=== PATIENT | male | born 1950 | race Caucasian/White ===

== ENCOUNTER → 2022-12-29 12:25 | Outpatient (BNVA) | payer MEDICARE, SELFPAY | PROVIDERS: PCP Internal Medicine; Visit Provider Orthopaedic Surgery | DX: M17.11 Unilateral primary osteoarthritis, right knee (principal) | CPT/HCPCS: 20610; J3301 ==

== ENCOUNTER 2023-06-02 07:43 | Outpatient (REF) | payer MEDICARE, SELFPAY ==
--- NOTE | ~2023-06-02 | XR_ITS ---
EXAMINATION: XR KNEE, RIGHT CLINICAL INFORMATION: Unilateral primary osteoarthritis. COMPARISON: None available. TECHNIQUE: AP, lateral and sunrise views of the right knee are submitted. FINDINGS: Bony mineralization is normal. There is marked narrowing of the medial and patellofemoral joint space compartment, and the lateral joint space compartment is well-maintained. There is a mild varus configuration. There is chondrocalcinosis. No fracture, dislocation or significant joint effusion is seen. There is no foreign body. XR/XR knee LT 3V IMPRESSION: 1. There is marked osteoarthritic change of the medial and patellofemoral joint space compartments of the right knee. 2. There is a mild varus configuration. 3. No fracture, dislocation or joint effusion is seen. 4. There is chondrocalcinosis, which can be associated with CPPD. EXAMINATION: XR KNEE, LEFT CLINICAL INFORMATION: Pain. COMPARISON: Radiograph dated 02/15/2017. TECHNIQUE: AP, lateral and sunrise views of the left knee are submitted. FINDINGS: Prosthetic components of the total knee arthroplasty are appropriately aligned without periprosthetic fracture or abnormal lucency. No component migration. No joint effusion. IMPRESSION: Appropriate alignment of the left total knee arthroplasty without evidence of complications.
--- NOTE | ~2023-06-02 | XR_ITS ---
EXAMINATION: XR KNEE, RIGHT CLINICAL INFORMATION: Unilateral primary osteoarthritis. COMPARISON: None available. TECHNIQUE: AP, lateral and sunrise views of the right knee are submitted. FINDINGS: Bony mineralization is normal. There is marked narrowing of the medial and patellofemoral joint space compartment, and the lateral joint space compartment is well-maintained. There is a mild varus configuration. There is chondrocalcinosis. No fracture, dislocation or significant joint effusion is seen. There is no foreign body. XR/XR knee RT 3V IMPRESSION: 1. There is marked osteoarthritic change of the medial and patellofemoral joint space compartments of the right knee. 2. There is a mild varus configuration. 3. No fracture, dislocation or joint effusion is seen. 4. There is chondrocalcinosis, which can be associated with CPPD. EXAMINATION: XR KNEE, LEFT CLINICAL INFORMATION: Pain. COMPARISON: Radiograph dated 02/15/2017. TECHNIQUE: AP, lateral and sunrise views of the left knee are submitted. FINDINGS: Prosthetic components of the total knee arthroplasty are appropriately aligned without periprosthetic fracture or abnormal lucency. No component migration. No joint effusion. IMPRESSION: Appropriate alignment of the left total knee arthroplasty without evidence of complications.
== END 2023-06-02 07:44 | disposition home or self-care (01) ==
LOC: HO.HOSX 07:43
PROVIDERS: Visit Provider Orthopaedic Surgery
DX: M17.11 Unilateral primary osteoarthritis, right knee (principal); M25.562 Pain in left knee
CPT/HCPCS: 73562; 99212

== ENCOUNTER 2023-06-02 09:48 | Outpatient (AMB) | payer MEDICARE, SELFPAY ==
--- NOTE | 2023-06-02 10:04 | A.OFFVIS_ITS ---
Intake Intake Visit Reasons: Preop-RT TKA 06/06/23 Intake Note: Graham is a 72 year old male who presents with complaints of progressively worsening right knee pain. He did undergo left total knee replacement surgery on April 27, 2021. He denies any pain in his left knee. He describes his right knee pain as sharp and severe in nature, 10/10. His right knee pain has gotten worse over the last few years in spite of continued non operative treatments. He has done physical therapy for 12 weeks over the last 6 months which aggravated his pain. He has also tried Tylenol and anti-inflammatory medicines which gave him minimal relief. The patient has difficulty walking even short distances because of his pain. At this point is right knee pain is interfering with his activities of daily living and his ability to sleep well through the night.. Allergies No Known Allergies [No Known Allergies*] Allergy (Verified 06/02/23 10:04) Medication List - Last Reconciled 06/02/23 by Tano Ray MD amlodipine 5 mg PO BEDTIME aspirin 81 mg PO BEDTIME finasteride 5 mg PO BEDTIME losartan 25 mg PO BEDTIME meloxicam 15 mg PO BEDTIME PRN metformin 500 mg PO BEDTIME rosuvastatin 5 mg PO BEDTIME tamsulosin 0.8 mg PO BEDTIME [facility] Medical History (Updated 06/02/23 @ 07:43 by Tano Ray MD) History of melanoma Diabetes BPH (benign prostatic hyperplasia) Right bundle branch block (RBBB) Hx of type 2 diabetes mellitus History of high cholesterol History of high blood pressure Surgical History (Updated 05/30/23 @ 13:23 by Taylor Mistry RN) Hx of colonoscopy History of melanoma excision Hx of cardiac catheterization History of total left knee replacement (TKR) Social History (Updated 05/30/23 @ 13:49 by Taylor Mistry RN) Household Members: Significant Other Housing: House Are you a primary vp care management to a significant other at home: No Do you presently have visiting nurse or other home services: No 75 years or older and lives alone: No Alcohol intake: never Patient Tobacco Use Status: Never used Tobacco Current occupational status: retired Current occupation: right hand dominant Physical Exam Const Other: Well-nourished well-developed very friendly male awake alert and oriented x3 in no acute distress Lungs - clear to auscultation bilaterally with symmetric expansion Cardiovascular exam - regular rate and rhythm Abdominal exam - soft nontender nondistended Extrem Other: Bilateral lower extremity examination shows good capillary refill, no skin lesions noted, normal sensation light touch Right knee examination shows a minimal effusion, palpable crepitus with range of motion, pain with range of motion, range of motion from -3 degrees to 115 degrees, no instability Results Reviewed Results Reviewed: X-rays of the patient's left knee taken today show a total knee arthroplasty in good position with no signs of loosening, no acute bony abnormalities X-rays of the patient's right knee taken today show severe joint space narrowing with grade 4 [id number] arthritis, subchondral sclerosis, osteophyte formation, no acute bony abnormalities Assessment & Plan Assessment & Plan (1) Arthritis of right knee: Code(s): M17.11 - Unilateral primary osteoarthritis, right knee Plan Mr. Enriquez presents with right knee pain due to end-stage degenerative joint disease. I had a lengthy discussion with the patient regarding the treatment options. At this point he has failed continued non operative treatments. The risks and benefits of right total knee replacement surgery were discussed at length with the patient. The patient wishes to proceed with surgery. shared services representative will be consulted following his surgery for home physical therapy and nursing. I will see the patient back 2-3 weeks following his surgery for his 1st postoperative appointment. The patient will follow-up as instructed. Feel free to call me at any time should questions regarding his orthopedic management arise. Thank you very much for asking me to see this very friendly gentleman. I spent 22 minutes in reviewing the patient's records and imaging studies, seeing the patient and documenting in the medical record. Orders: Orders XR knee LT 3V Today M25.562 - Pain in left knee XR knee RT 3V Today M17.11 - Unilateral primary osteoarthritis, right knee Coding Level of Care Code Est Pt Level 2 (94594) Diagnoses Arthritis of right knee M17.11
== END 2023-06-02 10:15 | disposition home or self-care (01) ==
PROVIDERS: PCP Internal Medicine; Visit Provider Orthopaedic Surgery
DX: M17.11 Unilateral primary osteoarthritis, right knee (principal)
CPT/HCPCS: 99212

== ENCOUNTER 2023-06-06 06:03 | Inpatient (IN) | payer MEDICARE, SELFPAY ==
[2023-05-30 13:28] VITALS: BP 146/65; PULSE 67; RESP 18; O2SAT 96; BMI 38.8
--- NOTE | 2023-05-30 13:47 | HO.ANESPROP2 ---
Documented by User: Laura Alejo NP 05/31/23 12:38 HPI - Anesthesia Eval Consult details Narrative: 73yo M for Right Knee Replacement Total PCP cleared Cardiac optimized DM. FBS ~115 PMFSH Active Problems Active Problems: All Active Problems (Updated 05/30/23 @ 12:40 by Taylor Mistry, CAIT) Arthritis of right knee (Acute) History of high blood pressure (Acute) Hx of type 2 diabetes mellitus (Acute) Past Medical History Medical History (Updated 06/02/23 @ 07:43 by Tano Ray MD) History of melanoma Diabetes BPH (benign prostatic hyperplasia) Right bundle branch block (RBBB) Hx of type 2 diabetes mellitus History of high cholesterol History of high blood pressure Family History Family history of problems with anesthesia: No Surgical History Surgical History (Updated 05/30/23 @ 13:23 by Taylor Mistry, CAIT) Hx of colonoscopy History of melanoma excision Hx of cardiac catheterization History of total left knee replacement (TKR) History of Problems with Anesthesia: No Social History Social History (Updated 05/30/23 @ 13:49 by Taylor Mistry, CAIT) Household Members: Significant Other Housing: House Are you a primary critical care paramedic to a significant other at home: No Do you presently have visiting nurse or other home services: No 75 years or older and lives alone: No Alcohol intake: never Patient Tobacco Use Status: Never used Tobacco Current occupational status: retired Current occupation: right hand dominant Meds Allergies Allergy/AdvReac Type Severity Reaction Status Date / Time No Known Allergies Allergy Verified 06/02/23 10:04 [No Known Allergies*] Home Medications Medication Instructions Recorded Confirmed Last Taken Type amlodipine 5 mg tablet 5 mg PO BEDTIME 12/29/22 06/02/23 Unknown History aspirin 81 mg capsule 81 mg PO BEDTIME 12/29/22 06/02/23 Unknown History finasteride 5 mg tablet 5 mg PO BEDTIME 12/29/22 06/02/23 Unknown History losartan 25 mg tablet 25 mg PO BEDTIME 12/29/22 06/02/23 Unknown History metformin 500 mg tablet 500 mg PO BEDTIME 12/29/22 06/02/23 Unknown History tamsulosin 0.4 mg capsule 0.8 mg PO BEDTIME 12/29/22 06/02/23 Unknown History meloxicam 15 mg tablet 15 mg PO BEDTIME PRN pain 05/30/23 06/02/23 Unknown History rosuvastatin 5 mg tablet 5 mg PO BEDTIME 05/30/23 06/02/23 Unknown History Exam Height,Weight and Vital Signs: Height 5 ft 7 in Weight 112.491 kg Last Vital Signs Pulse 67 05/30/23 13:28 Resp 18 05/30/23 13:28 BP 146/65 H 05/30/23 13:28 Pulse Ox 96 05/30/23 13:28 O2 Del Method Room Air 05/30/23 13:28 Pertinent Lab Results Pertinent Lab Results: Lab Results 05/30/23 05/30/23 Range/Units 13:54 14:13 Nasal Screen MRSA (PCR) NEGATIVE (Negative) Nasal S. aureus Screen NEGATIVE (Negative) Nasal MRSA/S.aureus Interp SEE NOTE Blood Type O Positive Antibody Screen NEGATIVE Labs from outside facility. CBC and BMP wnl except mild low H&H Narrative Narrative: EKG 04/2023 SR @ 69 LAD RSR in V1 ECHO 02/2023 1. LV size is nml 2. Borderline LVH 3. Overall LV systolic function is nml with EF 60-65% 4. Nml diastolic function 5. No WMA 6. LA size is nml 7. RV systolic function is nml 8. Aortic valve mildly thickened and focally calcified 9. Mild MR 10. No pulmo htn Nuc Stress 02/2023 WNL Airway Mallampati Class: III TM Dist: >3cm Neck ROM: Full Loose/Missing/Broken Teeth: No Heart: RRR Lungs: CTAB Assessment and Plan Assessment Anesthesia Assessment: Anesthesia Plan Discussed and PAT Visit Final Anesthetic Review Family History of Problems with Anesthesia: No History of Problems with Anesthesia: No Documented by User: Onel Lundberg MD 06/05/23 20:45 [facility] Past Medical History Medical History (Updated 06/02/23 @ 07:43 by Tano Ray MD) History of melanoma Diabetes BPH (benign prostatic hyperplasia) Right bundle branch block (RBBB) Hx of type 2 diabetes mellitus History of high cholesterol History of high blood pressure Surgical History Surgical History (Updated 05/30/23 @ 13:23 by Tyalor Mistry, RN) Hx of colonoscopy History of melanoma excision Hx of cardiac catheterization History of total left knee replacement (TKR) Social History Social History (Updated 05/30/23 @ 13:49 by Taylor Mistry, RN) Household Members: Significant Other Housing: House Are you a primary critical care paramedic to a significant other at home: No Do you presently have visiting nurse or other home services: No 75 years or older and lives alone: No Alcohol intake: never Patient Tobacco Use Status: Never used Tobacco Current occupational status: retired Current occupation: right hand dominant Meds Allergies Allergy/AdvReac Type Severity Reaction Status Date / Time No Known Allergies Allergy Verified 06/02/23 10:04 [No Known Allergies*] Home Medications Medication Instructions Recorded Confirmed Last Taken Type amlodipine 5 mg tablet 5 mg PO BEDTIME 12/29/22 06/02/23 Unknown History aspirin 81 mg capsule 81 mg PO BEDTIME 12/29/22 06/02/23 Unknown History finasteride 5 mg tablet 5 mg PO BEDTIME 12/29/22 06/02/23 Unknown History losartan 25 mg tablet 25 mg PO BEDTIME 12/29/22 06/02/23 Unknown History metformin 500 mg tablet 500 mg PO BEDTIME 12/29/22 06/02/23 Unknown History tamsulosin 0.4 mg capsule 0.8 mg PO BEDTIME 12/29/22 06/02/23 Unknown History meloxicam 15 mg tablet 15 mg PO BEDTIME PRN pain 05/30/23 06/02/23 Unknown History rosuvastatin 5 mg tablet 5 mg PO BEDTIME 05/30/23 06/02/23 Unknown History Assessment and Plan Final Anesthetic Review NPO: Yes ASA Class: III Final Preanesthetic Review: No Changes in Pt Med Stat, Meds/Allgs Chart Reviewed, Consent Obtained/Reviewed and Anes Risks/Benef Reviewed Patient Risk: Intermediate Procedure Risk: Intermediate Anesthetic Plan Anesthetic Plan: GA, Spinal, Regional Block and Agree w/ Assess. and Plan Disposition: Standard PACU
[2023-05-30 15:24] LABS: MRSA Nasal PCR NEGATIVE (Negative); SA Nasal PCR NEGATIVE (Negative)
[2023-06-06] VITALS (12 sets, daily range): BP systolic 108–154; BP diastolic 59–83; PULSE 60–70; RESP 12–18; TEMP 36.3–37.2; O2SAT 94–98; BMI 39.1
--- OUTSIDE RECORDS SUMMARY | 2023-06-06 06:10 | XMS_ITS | Continuity of Care Document ---
Author Name Unknown Organization [facility] ter Address [address] [place] [address]- Care Team Providers Care Furniture Painter Name Role Phone Venkat SWIFT, Karel M Primary Care Physician Encounter [facility] [place] Date(s): 12/11/21 - 12/12/[address] [address]- Encounter Diagnosis Hematuria(Final) - 12/11/21 Discharge Disposition: A-D/C Home Attending Physician: Roderick Baez DO Admitting Physician: Jannet Duke MD Referring Physician: Not on Staff, Referring MD Allergies, Adverse Reactions, Alerts No Known Allergies Medications amLODIPine 5 mg oral tablet 5 mg, Tablet, By Mouth, Hold for: sbp<110, 12/12/21 9:00:00 EDT Start Date: 12/12/21 Stop Date: 12/12/21 Status: Completed amLODIPine 5 mg oral tablet 5 mg, 1, tablet, By Mouth, Daily, Refills 0, Maintenance, 07/29/21 7:50:00 EST, Partial fill upon patient request if the prescription is for a schedule II opioid drug. Start Date: 07/29/21 Status: Ordered Aspirin Tablet 81 mg, By Mouth, Daily, Refills 0, Maintenance, 07/29/21 11:44:00 EST, Partial fill upon patient request if the prescription is for a schedule II opioid drug. Start Date: 07/29/21 Status: Ordered atorvastatin 40 mg oral tablet 1 tablet = 40 mg, By Mouth, Daily, # 90 tablet, 0 Refills, Maintenance, 07/29/21 7:50:00 EST, Tablet, Partial fill upon patient request if the prescription is for a schedule II opioid drug. Start Date: 07/29/21 Status: Ordered Bactrim 400 mg-80 mg oral tablet 1 tablet, By Mouth, 2 times a day, for 7 days, # 14 tablet, 0 Refills, Acute 12/19/21 14:30:00 EDT,12/12/21 14:30:00 EDT, Tablet, [id number], Partial fill upon patient request if the prescription is for a schedule II opioid drug., 1 tablet By... Start Date: 12/12/21 Stop Date: 12/19/21 Status: Ordered finasteride 5 mg oral tablet 1 tablet = 5 mg, By Mouth, Daily, # 30 tablet, 0 Refills, Maintenance, 07/29/21 7:49:00 EST, Tablet, Partial fill upon patient request if the prescription is for a schedule II opioid drug. Start Date: 07/29/21 Status: Ordered HYDROmorphone 2 mg oral tablet 1 tablet = 2 mg, By Mouth, Every 4 hours, 0 Refills, Maintenance, 07/29/21 7:52:00 EST, Partial fill upon patient request if the prescription is for a schedule II opioid drug. Start Date: 07/29/21 Status: Ordered losartan 25 mg oral tablet 25 mg, Tablet, By Mouth, Hold for: sbp<110, 12/12/21 9:00:00 EDT Start Date: 12/12/21 Stop Date: 12/12/21 Status: Completed losartan 25 mg oral tablet 25 mg, 1, tablet, By Mouth, Daily, Refills 0, Maintenance, 07/29/21 7:49:00 EST, Partial fill upon patient request if the prescription is for a schedule II opioid drug. Start Date: 07/29/21 Status: Ordered nitroglycerin 0.4 mg sublingual tablet 1 tablet = 0.4 mg, Sublingual, Every 5 minutes, 0 Refills, Maintenance, 07/29/21 7:51:00 EST, Partial fill upon patient request if the prescription is for a schedule II opioid drug. Start Date: 07/29/21 Status: Ordered omeprazole 20 mg oral delayed release tablet 1 tablet = 20 mg, By Mouth, Daily, 0 Refills, Maintenance, 07/29/21 7:51:00 EST, Partial fill upon patient request if the prescription is for a schedule II opioid drug. Start Date: 07/29/21 Status: Ordered tamsulosin 0.4 mg oral capsule 0.4 mg, 1, capsule, By Mouth, Daily, # 30 capsule, Refills 0, Maintenance, 07/29/21 7:47:00 EST, Partial fill upon patient request if the prescription is for a schedule II opioid drug. Start Date: 07/29/21 Status: Ordered Problem List Condition Effective Dates Status Health Status Inform ant Malignant melanoma(Confirmed) 1 Active Obese class II(Confirmed) Active 1LEFT LOWER BACK MELANOMA Vital Signs Most recent to oldest [Reference Range]: 1 2 3 Height 170 cm (12/12/21 12:12 AM) 170 cm (12/11/21 11:59 PM) 170 cm (12/11/21 9:21 PM) Weight 102 kg (12/12/21 12:12 AM) 102 kg (12/11/21 9:21 PM) 102 kg (12/11/21 12:27 PM) Oxygen Saturation [94-100 %] 98 % (12/12/21 12:00 PM) 98 % (12/12/21 8:00 AM) 96 % (12/12/21 3:00 AM) Pulse Rate [55-90 bpm] 66 bpm (12/12/21 12:00 PM) 71 bpm (12/12/21 8:00 AM) 77 bpm (12/12/21 3:00 AM) Body Mass Index [18.5-24.99] 35.29 *>HHI* (12/12/21 12:12 AM) 35.29 *>HHI* (12/11/21 9:21 PM) 35.29 *>HHI* (12/11/21 12:27 PM) Blood Pressure [90-138/55-84 mm Hg] 124/49mm Hg (12/12/21 12:00 PM) 127/69mm Hg (12/12/21 9:39 AM) 127/69mm Hg (12/12/21 9:39 AM) Respiratory Rate [16-30 br/min] 18 br/min (12/12/21 12:00 PM) 17 br/min (12/12/21 8:00 AM) 18 br/min (12/12/21 3:00 AM) Temperature [96.8-100.4 DegF] 98.2 DegF (12/12/21 12:00 PM) 98 DegF (12/12/21 8:00 AM) 99.6 DegF (12/12/21 4:00 AM) Mode of Delivery (Oxygen) Room air (12/12/21 12:00 PM) Room air (12/12/21 8:00 AM) Room air (12/12/21 3:00 AM) Blood pressure sites Arm, right (12/12/21 12:00 PM) Arm, right (12/12/21 8:00 AM) Arm, right (12/12/21 3:00 AM) Temperature Route Oral (12/12/21 12:00 PM) Oral (12/12/21 8:00 AM) Oral (12/12/21 4:00 AM) Dry Weight 102 kg (12/12/21 12:12 AM) 102 kg (12/11/21 9:21 PM) 102 kg (12/11/21 12:27 PM) Weight Obtained Via Patient/family state d (12/12/21 12:12 AM) Dry Weight Obtained Via Patient/family s tated (12/12/21 12:12 AM)
--- OUTSIDE RECORDS SUMMARY | 2023-06-06 06:10 | XMS_ITS | Continuity of Care Document ---
Author Name Unknown Organization [facility] ter Address [address] [place] [id number]- Care Team Providers Care Industrial Engineering Analyst Name Role Phone Venkat SWIFT, Karel M Primary Care Physician [phone] [facility] [place] Date(s): 08/24/21 - 02/12/[address] [address]- Encounter Diagnosis Atherosclerotic heart disease of [place] coronary artery without angina pectoris (Final) - Discharge Disposition: A-D/C Home Attending Physician: Leona Mccullough MD Admitting Physician: Leona Mccullough MD Referring Physician: Leona Mccullough MD Allergies, Adverse Reactions, Alerts No Known [...] opioid drug. Start Date: 07/29/21 Status: Ordered finasteride 5 mg oral tablet [...]
--- OUTSIDE RECORDS SUMMARY | 2023-06-06 06:10 | XMS_ITS | Continuity of Care Document ---
Author Name Unknown Organization [facility] ter Address [address] [place] [id number]- Care Team Providers Care Technical Account Executive Name Role Phone Bennett HILARIO, Kayleigh Primary Care Physician Encounter [facility] [place] Date(s): 07/29/21 - 07/30/[address] [address] Discharge Disposition: A-D/C Home Attending Physician: Leona Mccullough MD Admitting Physician: Leona Mccullough MD Referring Physician: Leona Mccullough MD Allergies, Adverse Reactions, Alerts No Known Allergies Medications amLODIPine 5 mg oral tablet 5 mg, Tablet, By Mouth, 07/30/21 9:00:00 EST Start Date: 07/30/21 Stop Date: 07/30/21 Status: Completed amLODIPine 5 mg oral tablet [...] opioid drug. Start Date: 07/29/21 Status: Ordered ticagrelor 90 mg oral tablet 1 tablet = 90 mg, By Mouth, 2 times a day, # 60 tablet, 11 Refills, Maintenance, 07/29/21 11:44:00 EST, Tablet, [facility], Partial fill upon patient request if the prescription is for a schedule II opioid drug., 171, cm, 07/29/21 7:39:0... Start Date: 07/29/21 Stop Date: 07/24/22 Status: Ordered Problem List Condition Effective Dates Status Health Status Inform ant Malignant melanoma(Confirmed) 1 Active Obese class II(Confirmed) Active 1LEFT LOWER BACK MELANOMA Vital Signs Most recent to oldest [Reference Range]: 1 2 3 4 Height 171 cm (07/30/21 8:24 AM) 171 cm (07/30/21 2:11 AM) 171 cm (07/29/21 7:39 AM) 171 cm (07/29/21 7:39 AM) Weight 103.3 kg (07/30/21 2:11 AM) 104 kg (07/29/21 7:39 AM) 104 kg (07/29/21 7:39 AM) Oxygen Saturation [94-100 %] 99 % (07/30/21 8:24 AM) 97 % (07/30/21 2:11 AM) 96 % (07/29/21 2:00 PM) Pulse Rate [55-90 bpm] 59 bpm (07/30/21 8:24 AM) 73 bpm (07/30/21 2:11 AM) 73 bpm (07/29/21 2:00 PM) Body Mass Index [18.5-24.99] 35.33 *>HHI* (07/30/21 2:11 AM) 35.57 *>HHI* (07/29/21 7:39 AM) Blood Pressure [90-138/55-84 mm Hg] 133/66mm Hg (07/30/21 9:12 AM) 133/66mm Hg (07/30/21 8:24 AM) 123/58mm Hg (07/30/21 2:11 AM) Respiratory Rate [16-30 br/min] 18 br/min (07/30/21 2:11 AM) 18 br/min (07/29/21 2:00 PM) Temperature [96.8-100.4 DegF] 97.4 DegF (07/30/21 8:24 AM) 98.6 DegF (07/30/21 2:11 AM) 98.2 DegF (07/29/21 2:00 PM) Mode of Delivery (Oxygen) Room air (07/30/21 8:24 AM) Room air (07/30/21 2:11 AM) Room air (07/29/21 2:00 PM) Blood pressure sites Arm, left (07/30/21 8:24 AM) Arm, left (07/30/21 2:11 AM) Arm, left (07/29/21 2:00 PM) Temperature Route Oral (07/30/21 8:24 AM) Oral (07/30/21 2:11 AM) Oral (07/29/21 2:00 PM) Dry Weight 104 kg (07/29/21 7:39 AM)
[2023-06-06 06:43] LABS: Glucose, Whole Blood 132 mg/dL (60-115)
[2023-06-06] MEDS: Lactated Ringers 1,000 ML 100 ML IVCONT ×2 (06:58→13:04)
--- NOTE | 2023-06-06 07:58 | PHA.MEDREC ---
Pharmacy Consult ? Medication Reconciliation Pharmacy has completed the medication reconciliation.pharmacy has reviewed the med rec done by nursing
--- NOTE | 2023-06-06 11:10 | P.BOP_ITS ---
Brief Operative Note Date of Service: 06/06/23 Pre-op diagnosis: Right knee degenerative joint disease Post-op diagnosis: same Procedure: Right total knee arthroplasty Implants: [place] [employer] cemented posterior stabilized total knee arthroplasty with a femoral component size 6 right, tibia component size 7, polyethylene liner size 7 with 11 mm of thickness, an asymmetric patellar component size 32 with 10 mm of thickness Surgeon: Tano Ray MD Anesthesia: spinal Was an Telegraphic Typewriter Installer used for this Procedure?: Yes Telegraphic Typewriter Installer: Sarahi Strauss Estimated blood loss (mL): 200 Pathology: other (Bony fragments from the right femur, tibia and patella) Condition: stable Disposition: PACU
--- NOTE | 2023-06-06 11:11 | P.OP_ITS ---
Operative Note Operative Note Date of Service: 06/06/23 Narrative: After the patient was identified as Graham Enriquez and their right knee was initialed by myself the patient was brought to the holding area where a right leg nerve block was performed by the anesthesiologist in routine fashion. The patient was then brought to the operating room where conscious sedation and spinal anesthesia were performed by the anesthesiologist in routine fashion. Because of the patient's diabetes (hemoglobin A1c of 6.5) he was given both IV Ancef and IV vancomycin preoperatively for infection prophylaxis. The patient's right lower extremity was prepped and draped in sterile fashion. A formal time- out was completed. The patient's right knee was placed onto a small bump to produce 30? of knee flexion during exposure. A #10 scalpel blade was used to make a midline incision extending 1 handbreadth proximal and distal to the patella. A second #10 scalpel blade was used to dissect the subcutaneous tissues down to the extensor mechanism. The subcutaneous flaps were maintained as thick as possible. A medial parapatellar arthrotomy was then performed using a #10 scalpel blade. The arthrotomy was begun just medial to the patellar tendon. The arthrotomy was continued 1 cm medial to the patella and then 5 mm into the medial aspect of the quadriceps tendon. The infrapatellar fat pad was partially excised to help with exposure. The soft tissue retinaculum was raised one-half of the way around the medial aspect of the proximal tibia. The patella was everted and the knee was flexed to 90?. There was no injury to the patellar tendon or its insertion onto the tibial tubercle. A drill bit was introduced into the distal aspect of the femur with a starting point 1 cm anterior to the origin of the posterior cruciate ligament. The intramedullary alignment katie was put into place. The distal alignment guide was set for a 5 degree valgus cut. The distal cutting block was put into place and was held with 4 pins. The intramedullary alignment katie was removed. Soft tissues were retracted in the distal femoral cut was made using a sagittal saw. The distal aspect of the femur measured to be a size 6 right component. Two drill holes were placed into the distal aspect of the femur marking 3? of external rotation. The distal cutting block was impacted into place and was held with 2 pins. Soft tissues were retracted and the 4 distal femoral cuts were made using a sagittal saw. Final notching and drilling of the distal aspect of the femur were performed in routine fashion. The trial femoral component was impacted into place. The knee was taken through a full range of motion. The patella tracked well. The patella was everted and the knee was flexed to 90?. The trial component was removed and our attention was directed to the proximal tibia. The medial and l ateral menisci were removed using a #10 scalpel blade. A small rim of the medial meniscus was left intact to help prevent injury to the medial collateral ligament. A drill bit was then introduced into the proximal tibia with a starting point midway from medial to lateral and one-third of the way posteriorly. The intramedullary alignment katie was put into place. The proximal tibial cutting guide was placed over the alignment katie in line with the 2nd toe. The guide was held in place using 3 pins. The intramedullary alignment katie was removed. Soft tissues were retracted and the proximal tibial cut was made using a sagittal saw. The proximal tibia measured to be a size 7 component. The tibial tray was put into place with an 11 mm liner. The femoral component was impacted into place. The knee was taken through a full range of motion. There was full flexion and full extension. There was no instability with varus or valgus stress testing with the knee in flexion or extension. The patella tracked well with no medially directed force. The rotation of the tibial tray was marked using electrocautery with the knee in extension. The patella was everted and the knee was flexed to 90?. All trial components were removed. The tibial tray was placed onto the proximal tibia in line with the electrocautery mona. The tray was held in place using 3 pins. Final broaching of the proximal tibia was performed in routine fashion. The trial liner and trial femoral component were put into place. The knee was brought into extension and our attention was directed to the patella. The patella measured 25 mm in thickness. The patellar resection guide was set for a 10 mm resection. Soft tissues were retracted and the patella cut was made using a sagittal saw. The remaining patella measured 15 mm in thickness. The undersurface of the patella was measured to be a size 32 asymmetric component. Three drill holes were placed into the undersurface of the patella in routine fashion. The trial component was put into place. The knee was taken through a full range of motion. The patella tracked well. The patella was everted and the knee was flexed to 90?. All trial components were removed. The knee was once again brought into extension and placed onto a small bump. The knee joint was irrigated with copious amounts of normal saline solution via pulse lavage while the cement was mixed. The patella was everted and the knee was flexed to 90?. A small amount of cement was placed along the posterior aspects of the tibial and femoral components. Cement was then pressurized into the proximal tibia. The tibial component was impacted into place. Any excess cement was removed. The polyethylene liner was then impacted into place. Cement was then pressurized into the distal aspect of the femur. A small amount of cement was placed into the intramedullary canal to help reduce bleeding. The femoral component was impacted into place. Any excess cement was removed. The knee was then brought into extension. Cement was pressurized into the undersurface of the patella. The patellar component was put into place and was held with a patella clamp. Any excess cement was removed. Once the cement had hardened the patellar clamp was removed. The knee was taken through a full range of motion. There was full flexion and extension. There was no instability with varus or valgus stress testing with the knee in flexion or extension. The patella tracked well with no medially directed force. The knee joint was irrigated with copious amounts of normal saline solution via pulse lavage. Any significant bleeding vessels were coagulated. The patient's right knee was placed onto a small bump. The arthrotomy was closed with #2 Ethibond [id number] interrupted suture as well as #1 Vicryl [id number] interrupted suture. The wound was once again irrigated. The subcutaneous tissues were closed with 0 Vicryl and 2-0 Vicryl interrupted sutures. The skin was closed with skin lalito. Dry sterile dressing and Javid bandages were placed over the patient's right knee. The patient was awake and alert. The patient was transferred to the recovery room in stable condition.
--- NOTE | 2023-06-06 12:49 | HO.PM.IMCN ---
History of Present Illness Data of Consult Service Date: 06/06/23 Primary Care Provider: Unknown Physician HPI 73-year-old man with history of hypertension, diabetes mellitus, hyperlipidemia. Patient is status post right total knee arthroplasty. Surgery was unremarkable. Patient is hemodynamically stable. Patient has been able to eat and drink without nausea or vomiting. Minimal mild pain at this time. No acute medical complaints. Review of Systems Review of Systems: Denies any recent fever chills or decrease in appetite respiratory denies any shortness of breath coverage production cardiovascular Denied chest pain gastrointestinal denies any dysphagia abdominal pain nausea vomiting or diarrhea genitourinary denies any dysuria frequency or hematuria musculoskeletal denies any joint pain or swelling neuropsych denies any weakness or seizures all other systems reviewed are negative [facility] Medical History (Updated 06/02/23 @ 07:43 by Tano Ray MD) History of melanoma Diabetes BPH (benign prostatic hyperplasia) Right bundle branch block (RBBB) Hx of type 2 diabetes mellitus History of high cholesterol History of high blood pressure Surgical History (Updated 05/30/23 @ 13:23 by Taylor Mistry RN) Hx of colonoscopy History of melanoma excision Hx of cardiac catheterization History of total left knee replacement (TKR) Social History (Updated 05/30/23 @ 13:49 by Taylor Mistry RN) Household Members: Significant Other Housing: House Are you a primary critical care clinical nurse specialist to a significant other at home: No Do you presently have visiting nurse or other home services: No 75 years or older and lives alone: No Alcohol intake: never Patient Tobacco Use Status: Never used Tobacco Current occupational status: retired Current occupation: right hand dominant Meds Allergies Allergy/AdvReac Type Severity Reaction Status Date / Time No Known Allergies Allergy Verified 06/06/23 06:09 [No Known Allergies*] Active Medications: Current Medications Acetaminophen (Acetaminophen 325 Mg Tablet) 650 mg PO Q6H PRN PRN Reason: Pain, Mild (Pain Scale 1-3) Amlodipine Besylate (Amlodipine Besylate 5 Mg Tablet) 5 mg PO BEDTIME RUPAL; Protocol Aspirin (Aspirin 325 Mg Tablet) 325 mg PO BID@0600,1800 RUPAL Celecoxib (Celecoxib 200 Mg Capsule) 200 mg PO BID [facility] Docusate Sodium (Docusate Sodium 100 Mg Capsule) 100 mg PO BID [facility] Fentanyl (Fentanyl Citrate/Pf 100 Mcg/2 Ml Vial) 25 mcg IVPUSH Q5M PRN; Protocol PRN Reason: Pain, Moderate(Pain Scale 4-6) Finasteride (Finasteride 5 Mg Tablet) 5 mg PO BEDTIME RUPAL Gabapentin (Gabapentin 100 Mg Capsule) 100 mg PO BEDTIME RUPAL Hydromorphone HCl (Hydromorphone Hcl 0.5 Mg/0.5 Ml Syringe) 0.25 mg IVPUSH Q5M PRN; Protocol PRN Reason: Pain, Severe (Pain Scale 7-10) Hydromorphone HCl (Hydromorphone Hcl 0.5 Mg/0.5 Ml Syringe) 0.25 mg IVPUSH Q4H PRN; Protocol PRN Reason: Pain, Moderate(Pain Scale 4-6) Hydromorphone HCl (Hydromorphone Hcl 2 Mg Tablet) 0.5 mg PO Q4H PRN PRN Reason: Pain, Severe (Pain Scale 7-10) Hydromorphone HCl (Hydromorphone Hcl 2 Mg Tablet) 2 mg PO Q3H PRN PRN Reason: Pain, Moderate(Pain Scale 4-6) Hydromorphone HCl (Hydromorphone Hcl 4 Mg Tablet) 4 mg PO Q3H PRN PRN Reason: Pain, Severe (Pain Scale 7-10) Vancomycin HCl (Vancomycin/Ns) 2,000 mg in 500 mls @ 250 mls/hr IV ONCE ONE Stop: 06/06/23 23:59 Cefazolin Sodium/Dextrose (Ancef) 2 gm in 50 mls @ 100 mls/hr IV POSTOP RUPAL Stop: 06/07/23 16:00 Cefazolin Sodium/Dextrose (Ancef) 2 gm in 50 mls @ 100 mls/hr IV POSTOP ONE Stop: 06/06/23 13:01 Lactated Ringer's (Lr) 1,000 mls @ 100 mls/hr IVCONT .Q10H RUPAL Losartan Potassium (Losartan Potassium 25 Mg Tablet) 25 mg PO BEDTIME RUPAL; Protocol Metformin HCl (Metformin Hcl 500 Mg Tablet) 500 mg PO BEDTIME RUPAL Methocarbamol (Methocarbamol 750 Mg Tablet) 750 mg PO TID RUPAL Morphine Sulfate (Morphine Sulfate Er 15 Mg Tablet.Er) 15 mg PO Q12H RUPAL Non-Formulary Medication (Rosuvastatin) 5 mg PO BEDTIME RUPAL Ondansetron HCl (Ondansetron Hcl 4 Mg/2 Ml Vial) 4 mg IVPUSH Q8H PRN PRN Reason: Nausea and Vomiting Pharmacy Consult (Consult Rx Vancomycin Dosing) 1 each MISCELLANE DAILY PRN PRN Reason: Consult order Sodium Chloride (0.9 % Sodium Chloride Flush 3 Ml Syringe) 3 ml IVFLUSH QSHIFT RUPAL Tamsulosin HCl (Tamsulosin Hcl 0.4 Mg Capsule) 0.8 mg PO BEDTIME [facility] Home Medications Medication Instructions Recorded Confirmed Last Taken Type amlodipine 5 mg tablet 5 mg PO BEDTIME 12/29/22 06/06/23 06/05/23 History aspirin 81 mg capsule 81 mg PO BEDTIME 12/29/22 06/06/23 06/05/23 History finasteride 5 mg tablet 5 mg PO BEDTIME 12/29/22 06/06/23 Unknown History losartan 25 mg tablet 25 mg PO BEDTIME 12/29/22 06/06/23 06/05/23 History metformin 500 mg tablet 500 mg PO BEDTIME 12/29/22 06/06/23 06/05/23 History tamsulosin 0.4 mg capsule 0.8 mg PO BEDTIME 12/29/22 06/06/23 Unknown History meloxicam 15 mg tablet 15 mg PO BEDTIME PRN pain 05/30/23 06/06/23 05/30/23 History rosuvastatin 5 mg tablet 5 mg PO BEDTIME 05/30/23 06/06/23 Unknown History Physical Exam Vital Signs and Narrative: Vital Signs: Last Vital Signs Temp 97.8 F 06/06/23 12:21 Pulse 63 06/06/23 12:21 Resp 16 06/06/23 12:21 BP 154/65 H 06/06/23 12:21 Pulse Ox 98 06/06/23 12:21 O2 Del Method Room Air 06/06/23 12:21 BMI result Body Mass Index 39.1 Appearing in no acute distress head is normocephalic atraumatic eyes pupils are PERRLA sclera is anicteric mouth throat mucous membranes are intact and moist neck is supple no lymphadenopathy, no JVD noted lung sounds are clear to auscultation heart regular rate rhythm, clear S1, S2 positive bowel sounds, abdomen is soft, nontender neuro patient is alert x3, no focal deficits right knee surgical dressing intact clean and dry, surgical incision not visualized Results Labs Labs: Laboratory Results - last 24 hr 06/06/23 06:38 POC Glucose 132 H Assessment and Plan (1) Left knee pain: Status: Acute Plan 73-year-old man status post right total knee arthroplasty Right total knee arthroplasty Management as per surgical team Pain management Diabetes mellitus type 2 Sliding scale, metformin, ADA diet Hypertension Stable blood pressure, continue home medications BPH Continue finasteride and tamsulosin DVT prophylaxis with full-dose aspirin Medical consultation complete. Will sign off
[2023-06-06] MEDS: Celecoxib 200 MG CAPSULE PO ×2 (13:00→21:18)
[2023-06-06] MEDS: methocarbamoL 750 MG TABLET PO ×2 (13:00→21:18)
[2023-06-06] MEDS: Docusate Sodium 100 MG CAPSULE PO ×2 (13:00→21:18)
[2023-06-06] MEDS: ceFAZolin Sodium/Dextrose,Iso 2 GM/50 ML PIGGYBACK IV ×2 (13:01→14:03)
[2023-06-06] MEDS: Morphine Sulfate ER 15 MG TABLET.ER PO (13:01)
[2023-06-06 16:51] LABS: Glucose, Whole Blood 131 mg/dL (60-115)
[2023-06-06] MEDS: Aspirin 325 MG TABLET PO (17:47)
[2023-06-06 20:57] LABS: Glucose, Whole Blood 134 mg/dL (60-115)
[2023-06-06] MEDS: Atorvastatin Calcium 20 MG TABLET PO (21:17)
[2023-06-06] MEDS: Tamsulosin HCL 0.4 MG CAPSULE 0.8 MG PO (21:17)
[2023-06-06] MEDS: amLODIPine Besylate 5 MG TABLET PO (21:18)
[2023-06-06] MEDS: metFORMIN HCl 500 MG TABLET PO (21:18)
[2023-06-06] MEDS: Finasteride 5 MG TABLET PO (21:18)
[2023-06-06] MEDS: Gabapentin 100 MG CAPSULE PO (21:18)
[2023-06-06] MEDS: Losartan Potassium 25 MG TABLET PO (21:18)
[2023-06-06] MEDS: HYDROmorphone HCl 0.5 MG/0.5 ML SYRINGE 0.25 MG IVPUSH (21:31)
[2023-06-06] MEDS: Acetaminophen 325 MG TABLET 650 MG PO (21:32)
[2023-06-06] MEDS: vancomycin/NS 2,000 MG/500 ML PLAST..BAG 250 MG IV (22:04)
[2023-06-07] MEDS: Zolpidem Tartrate 5 MG TABLET PO (01:04)
[2023-06-07] MEDS: Morphine Sulfate ER 15 MG TABLET.ER PO ×2 (01:04→13:58)
[2023-06-07] MEDS: Lactated Ringers 1,000 ML 100 ML IVCONT ×3 (01:06→22:00)
[2023-06-07] MEDS: HYDROmorphone HCl 0.5 MG/0.5 ML SYRINGE 0.25 MG IVPUSH ×5 (02:34→21:58)
[2023-06-07 04:00] VITALS: BP 134/62; PULSE 82; RESP 18; TEMP 36.6; O2SAT 96
[2023-06-07 05:51] LABS: Basophils Percent Auto 0.3 % (0-2); Eosinophils Absolute Auto 0.1 X10*3/uL (0.0-0.4); Eosinophils Percent Auto 0.5 % (0-4); Hematocrit 35.6 % (42.0-52.0); Hemoglobin 11.8 g/dl (14.0-18.0); Imm Gran Abs Auto 0.07 X10*3/uL (0.00-0.03); Imm Gran Pct Auto 0.6 % (0.0-0.4); Lymphocytes Absolute Auto 0.9 X10*3/uL (1.2-4.9); Lymphocytes Percent Auto 7.8 % (20-40); MANUAL DIFF FLAG SCAN; Mean Corpuscular HGB Conc 33.1 g/dl (31.0-36.0); Mean Corpuscular Volume 93.4 fL (80.0-98.0); Mean Platelet Volume 10.1 fL (9.4-12.4); Monocytes Absolute Auto 1.6 X10*3/uL (0.1-1.2); Monocytes Percent Auto 13.3 % (2-11); Neutrophils Absolute Auto 9.3 x10*3/uL (2.0-8.3); Neutrophils Percent Auto 77.5 % (45-73); Platelet Count 199 X10*3/uL (160-400); Red Blood Count 3.81 X10*6/uL (4.60-5.80); Red Cell Distribution Width 12.7 % (11.0-16.0); SCAN SMEAR FLAG 1
[2023-06-07] MEDS: Aspirin 325 MG TABLET PO ×2 (05:52→18:24)
[2023-06-07 06:05] LABS: Anion Gap 11 (12-20); Blood Urea Nitrogen 16 mg/dL (9-16); Calcium 8.7 mg/dL (8.4-10.2); Carbon Dioxide 23 mmol/L (22-29); Chloride 109 mmol/L (96-108); Creatinine Clr Calc Pharmacy 81.8; Estimated Glomerular Filt Rate > 60; Glucose Fasting 175 mg/dL (60-99); Potassium 4.2 mmol/L (3.3-5.1); Sodium 139 mmol/L (135-145)
[2023-06-07 06:15] LABS: SLIDE REVIEW VERIFIED
--- NOTE | 2023-06-07 06:46 | HO.POSTANES ---
Post Anesthesia Evaluation Post Anesthesia Evaluation Date of Service: 06/07/23 Vital Signs: Vital Signs Temp Pulse Resp BP Pulse Ox O2 Del Method 06/07/23 04:00 97.8 F 82 18 134/62 96 Room Air 06/06/23 19:44 99.0 F 70 18 148/65 H 96 Room Air Anesthesia: Spinal and Nerve Block Mental Status: Awake Pain Control: Satisfactory Nausea/Vomiting: None Hydration: Adequate Anesthesia-Related Issues: No Anes. Related Issues
[2023-06-07 07:14] LABS: Glucose, Whole Blood 173 mg/dL (60-115)
[2023-06-07 08:00] VITALS: BP 127/56; PULSE 78; RESP 20; TEMP 37.2; O2SAT 94
[2023-06-07] MEDS: methocarbamoL 750 MG TABLET PO ×3 (08:02→22:02)
[2023-06-07] MEDS: Docusate Sodium 100 MG CAPSULE PO ×2 (08:02→22:03)
[2023-06-07] MEDS: Celecoxib 200 MG CAPSULE PO ×2 (08:02→22:02)
--- NOTE | 2023-06-07 09:22 | MHC.CM.PN ---
[facility] DELIVERED PATIENT FROM HOME WITH PARTNER, TORIE. AMBULATES WITH A CANE, WHEELED WALKER PRN. INDEPENDENT WITH ADL'S. 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 GOAL IS HOME WITH SERVICES, 1ST CHOICE IS [facility] - REFERRAL PLACED VIA [facility]. PARTNER WILL PROVIDE TRANSPORTATION. CM WILL CONTINUE TO FOLLOW.
[2023-06-07 11:16] LABS: Glucose, Whole Blood 176 mg/dL (60-115)
[2023-06-07 12:25] VITALS: BP 131/62; PULSE 78; RESP 20; TEMP 36.6; O2SAT 96
[2023-06-07] MEDS: 0.9 % Sodium Chloride Flush 3 ML SYRINGE IVFLUSH (15:46)
[2023-06-07 16:34] LABS: Glucose, Whole Blood 154 mg/dL (60-115)
--- NOTE | 2023-06-07 18:31 | W.MHC.F2F ---
Service Date Service Date: 06/07/23 Encounter Date of encounter: 06/08/23 Reasons for Services Signs and symptoms assessed: s/p right total knee arthroplasty. Pt. is considered homebound due to recent surgery. Unable to drive, poor balance, poor gait mechanics. Reason for physical therapy: home safety and mobility, therapeutic exercises, restore joint function, gait/transfer training, assess need for DME and ADL training Homebound: Leaving the home is medically contraindicated at this time without the asist of a device and/or another person due th the listed conditions above and below. Reason homebound: unsteady gait / fall risk, leg weakness, pain with ambulation, pain with transfers, poor balance / fall risk and unable to drive Certification: Based on the above findings, I certify that this patient is confined to the home and needs intermittent snf care, physical therapy and/or speech therapy, or continues to need occupational therapy. The patient is under my care, and I have initiated the establishment of the plan of care. The patient will be followed by a physician who will periodically review the plan of care. Time Spent With Patient Time: Total time managing care of this patient today ____ minutes.
--- NOTE | 2023-06-07 18:32 | PM.DS ---
DS: Providers Provider Date of Service: 06/08/23 Date of admission: 06/06/23 06:03 Primary care physician: Eagle Garcia MD Consults: 06/06/23 12:32 Consult to Hospitalist Routine Comment: Consulting Provider: Hospitalist Reason For Exam: Routine medical management - DMII DS: Diagnosis Discharge Diagnosis (1) Left knee pain: Status: Acute DS: Summary Hospital Course Hospital Course: The patient underwent a successful right total knee arthroplasty, they were transferred to PACU and then to the floor to recover. During their stay, their vitals were stable, afebrile at 97.8. Labs were unremarkable, H/H 11.8/35.6. POD 0 they were started on Aspirin 325mg po bid for DVT ppx, they also received Physical Therapy services twice a day. Prior to discharge, their dressing and incision was clean dry and intact, new Aquacel dressing applied and the plan was to be discharged home with [facility] services. Time Attestation Discharge coordination time: Less than 30 minutes Quality: Safe Use of Opioids Does Pt have an Active Cancer Diagnosis on the Problem List?: No Quality: Stroke Does the patient have a stroke diagnosis?: No Physical Exam Vital Signs: Vital Signs: Last Vital Signs Temp 97.8 F 06/07/23 12:25 Pulse 78 06/07/23 12:25 Resp 20 06/07/23 12:25 BP 131/62 06/07/23 12:25 Pulse Ox 96 06/07/23 12:25 O2 Del Method Room Air 06/07/23 12:25 BMI result Body Mass Index 39.1 Extrem: Other: Right knee dressing is c/d/i. Able to dorsi/plantar flex. Calf is supple and nontender. Sensation intact. Pedal pulse intact. DS: Data Data Completed and Pending Pending studies at discharge: Pending at discharge 06/06/23 09:30 Surgical [PTH] Routine Labs on day of discharge: Laboratory Results - last 24 hr 06/06/23 06/07/23 06/07/23 20:26 05: 07:10 WBC 12.0 H RBC 3.81 L Hgb 11.8 L Hct 35.6 L MCV 93.4 MCH 31.0 MCHC 33.1 RDW 12.7 Plt Count 199 MPV 10.1 Immature Gran % (Auto) 0.6 H Neut % (Auto) 77.5 H Lymph % (Auto) 7.8 L [place] % (Auto) 13.3 H Eos % (Auto) 0.5 Baso % (Auto) 0.3 Lymph # (Auto) 0.9 L [place] # (Auto) 1.6 H Eos # (Auto) 0.1 Baso # (Auto) 0.0 Abs Immat Gran (auto) 0.07 H Absolute Neuts (auto) 9.3 H Absolute Nucleated RBC 0.000 Nucleated RBC % (auto) 0.0 Smear Tech's Comments VERIFIED Sodium 139 Potassium 4.2 Chloride 109 H Carbon Dioxide 23 Anion Gap 11 L BUN 16 Creatinine 0.98 Estim Creat Clear Calc 81.8 Estimated GFR > 60 POC Glucose 134 H 173 H Fasting Glucose 175 H Calcium 8.7 06/07/23 06/07/23 11:12 16:27 WBC RBC Hgb Hct MCV MCH MCHC RDW Plt Count MPV Immature Gran % (Auto) Neut % (Auto) Lymph % (Auto) [place] % (Auto) Eos % (Auto) Baso % (Auto) Lymph # (Auto) [place] # (Auto) Eos # (Auto) Baso # (Auto) Abs Immat Gran (auto) Absolute Neuts (auto) Absolute Nucleated RBC Nucleated RBC % (auto) Smear Tech's Comments Sodium Potassium Chloride Carbon Dioxide Anion Gap BUN Creatinine Estim Creat Clear Calc Estimated GFR POC Glucose 176 H 154 H Fasting Glucose Calcium Discharge Plan Discharge Anticipated Discharge Date/Time: 06/08/23 15:48 Patient Disposition: Home Health Service Discharge Diagnosis: s/p RTKA Referrals: Sarahi Strauss PA-C [Physician Medical Administrative] - 06/23/23 12:30 pm Discharge Medications: New methocarbamol 750 mg Tablet 750 mg PO TID 14 Days Qty: 42 0RF celecoxib 200 mg Capsule 200 mg PO BID 30 Days Qty: 60 0RF acetaminophen 325 mg Tablet 650 mg PO Q6H PRN (Reason: Pain, Mild (Pain Scale 1-3)) 30 Days Qty: 240 0RF aspirin 325 mg Tablet 325 mg PO BID@0600,1800 42 Days Qty: 240 0RF hydromorphone 2 mg Tablet 0.5 mg PO Q4H PRN (Reason: Pain, Severe (Pain Scale 7-10)) 7 Days Qty: 42 0RF Rx Instructions: Partial Fill upon patient request. docusate sodium 100 mg Capsule 100 mg PO BID 30 Days Qty: 60 0RF gabapentin 100 mg Capsule 100 mg PO BEDTIME 7 Days Qty: 7 0RF Continued rosuvastatin 5 mg tablet 5 mg PO BEDTIME metformin 500 mg tablet 500 mg PO BEDTIME finasteride 5 mg tablet 5 mg PO BEDTIME amlodipine 5 mg tablet 5 mg PO BEDTIME tamsulosin 0.4 mg capsule 0.8 mg PO BEDTIME losartan 25 mg tablet 25 mg PO BEDTIME Held aspirin 81 mg capsule 81 mg PO BEDTIME Hold Instructions: Resume on 07/20/23. Discontinued meloxicam 15 mg tablet 15 mg PO BEDTIME PRN (Reason: pain) Discharge Orders: Discharge Order (Routine); Ordered 06/08/23 Ordered By: Sarahi Strauss Diet: Advance to usual diet Activity on Discharge: Use cane or walker Stand Alone Forms: Patient Portal Discharge page Activity Restrictions/Additional Instructions: Physical Therapy for ROM 0-120, quad strength, gait training. Use walker for ambulation Limit stair climbing, No shower, No tub bath, No driving Continue anticoagulant ASA for 6 weeks and then may return to 81mg dose at baseline Keep Aquacel dressing clean, dry and intact. Follow up with orthopedics in 2 weeks Care Plan Goals: Restore fxn to right knee Health Concerns: None Plan of Treatment: Physical Therapy for ROM 0-120, quad strength, gait training. Use walker for ambulation Limit stair climbing, No shower, No tub bath, No driving Continue anticoagulant ASA for 6 weeks and then may return to 81mg dose at baseline Keep Aquacel dressing clean, dry and intact. Follow up with orthopedics in 2 weeks Assessment: Stable for d/c
[2023-06-07 19:53] VITALS: BP 130/62; PULSE 80; RESP 18; TEMP 37; O2SAT 96
[2023-06-07 20:49] LABS: Glucose, Whole Blood 163 mg/dL (60-115)
[2023-06-07] MEDS: Atorvastatin Calcium 20 MG TABLET PO (22:01)
[2023-06-07] MEDS: Losartan Potassium 25 MG TABLET PO (22:02)
[2023-06-07] MEDS: amLODIPine Besylate 5 MG TABLET PO (22:02)
[2023-06-07] MEDS: metFORMIN HCl 500 MG TABLET PO (22:02)
[2023-06-07] MEDS: Tamsulosin HCL 0.4 MG CAPSULE 0.8 MG PO (22:02)
[2023-06-07] MEDS: Gabapentin 100 MG CAPSULE PO (22:03)
[2023-06-07] MEDS: Finasteride 5 MG TABLET PO (22:03)
[2023-06-08] MEDS: Morphine Sulfate ER 15 MG TABLET.ER PO ×2 (00:53→12:36)
[2023-06-08] MEDS: Zolpidem Tartrate 5 MG TABLET PO (01:35)
[2023-06-08 03:37] VITALS: BP 126/58; PULSE 69; RESP 17; TEMP 36.4; O2SAT 93
[2023-06-08] MEDS: Aspirin 325 MG TABLET PO (05:37)
[2023-06-08] MEDS: Lactated Ringers 1,000 ML 100 ML IVCONT (05:38)
[2023-06-08 07:12] VITALS: BP 118/57; PULSE 76; RESP 20; TEMP 36.7; O2SAT 94
[2023-06-08 07:46] LABS: Basophils Percent Auto 0.3 % (0-2); Eosinophils Absolute Auto 0.2 X10*3/uL (0.0-0.4); Eosinophils Percent Auto 1.4 % (0-4); Hematocrit 34.1 % (42.0-52.0); Hemoglobin 11.2 g/dl (14.0-18.0); Imm Gran Abs Auto 0.06 X10*3/uL (0.00-0.03); Imm Gran Pct Auto 0.5 % (0.0-0.4); Lymphocytes Absolute Auto 1.3 X10*3/uL (1.2-4.9); Lymphocytes Percent Auto 10.5 % (20-40); MANUAL DIFF FLAG SCAN; Mean Corpuscular HGB Conc 32.8 g/dl (31.0-36.0); Mean Corpuscular Hemoglobin 30.8 pg (27.0-33.0); Mean Corpuscular Volume 93.7 fL (80.0-98.0); Mean Platelet Volume 10.8 fL (9.4-12.4); Monocytes Absolute Auto 1.6 X10*3/uL (0.1-1.2); Monocytes Percent Auto 13.3 % (2-11); Neutrophils Absolute Auto 8.8 x10*3/uL (2.0-8.3); Platelet Count 190 X10*3/uL (160-400); Red Blood Count 3.64 X10*6/uL (4.60-5.80); Red Cell Distribution Width 12.6 % (11.0-16.0); SCAN SMEAR FLAG 1; White Blood Count 11.9 X10*3/uL (4.8-10.8)
[2023-06-08] MEDS: Celecoxib 200 MG CAPSULE PO (07:50)
[2023-06-08] MEDS: HYDROmorphone HCl 0.5 MG/0.5 ML SYRINGE 0.25 MG IVPUSH (07:50)
[2023-06-08] MEDS: methocarbamoL 750 MG TABLET PO (07:50)
[2023-06-08] MEDS: Docusate Sodium 100 MG CAPSULE PO (07:51)
[2023-06-08 08:01] LABS: Anion Gap 13 (12-20); Blood Urea Nitrogen 13 mg/dL (9-16); Carbon Dioxide 22 mmol/L (22-29); Chloride 108 mmol/L (96-108); Creatinine Clr Calc Pharmacy 101.5; Estimated Glomerular Filt Rate > 60; Glucose Fasting 115 mg/dL (60-99); Potassium 3.9 mmol/L (3.3-5.1); Sodium 139 mmol/L (135-145)
[2023-06-08 08:12] LABS: Glucose, Whole Blood 125 mg/dL (60-115)
[2023-06-08 08:34] LABS: SLIDE REVIEW VERIFIED
--- NOTE | 2023-06-08 10:58 | MHC.CM.PN ---
EMR REVIEWED. PATIENT MEDICALLY CLEARED FOR DC HOME WITH [facility]. SPOKE WITH [facility] - CONFIRMED THAT PATIENT WILL BE ACCEPTED WITH CURRENT PCP TRISHA. PER VAN SOC WITH PHYSICAL THERAPY SCHEDULED FOR TOMORROW. IMM WAS DELIVERED 06/07. PARTNER TORIE WILL KILN LOADER PATIENT AT 1PM. RN AND LUIS A AWARE.
[2023-06-08 11:26] LABS: Glucose, Whole Blood 145 mg/dL (60-115)
[2023-06-08] MEDS: HYDROmorphone HCl 2 MG TABLET PO (12:36)
== END 2023-06-08 12:58 | disposition home health service (06) | DRG 470 ==
LOC: HO.SSSA 06:08 → HO.S3 11:50
PROVIDERS: Physician Assistant; Admitting Provider Orthopaedic Surgery; PCP Internal Medicine; Visit Provider Orthopaedic Surgery
PROC: 0SRC0J9 Replacement of Right Knee Joint with Synthetic Substitute, Cemented, Open Approach (ICD-10-PCS; CPT 27447; principal; 2023-06-06 07:30)
DX: M17.11 Unilateral primary osteoarthritis, right knee (principal); E11.9 Type 2 diabetes mellitus without complications; N40.0 Benign prostatic hyperplasia without lower urinary tract symptoms; I10 Essential (primary) hypertension; G89.18 Other acute postprocedural pain; Z79.82 Long term (current) use of aspirin; Z79.899 Other long term (current) drug therapy
CPT/HCPCS: 27447; 36415; 80048; 82947; 85025; 86850; 86900; 86901; 87640; 87641; 88305; 88311; 97110; 97116; 97161; 97165; 97530; 97535; C1776; J0131; J0665; J0690; J1170; J1885; J2250; J2371; J2704; J2795; J3370; J7120

== ENCOUNTER → 2023-06-06 06:03 | Outpatient (BNV) | payer MEDICARE, SELFPAY | PROVIDERS: Admitting Provider Orthopaedic Surgery; Visit Provider Nurse Practitioner Acute Care | DX: M25.562 Pain in left knee (principal) | CPT/HCPCS: 99222 ==

== ENCOUNTER → 2023-06-06 06:03 | Outpatient (BNV) | payer MEDICARE, SELFPAY | PROVIDERS: Admitting Provider Orthopaedic Surgery; Visit Provider Orthopaedic Surgery | DX: Z47.1 Aftercare following joint replacement surgery (principal); Z96.651 Presence of right artificial knee joint | CPT/HCPCS: 27447; 99024; G0180 ==

== ENCOUNTER 2023-06-23 09:39 | Outpatient (REF) | payer MEDICARE, SELFPAY | END 2023-06-23 09:40 | disposition home or self-care (01) | LOC: HO.HOSX 09:39 | PROVIDERS: Visit Provider Physician Assistant | DX: Z47.1 Aftercare following joint replacement surgery (principal); Z96.651 Presence of right artificial knee joint | CPT/HCPCS: 73560; 73565; 99212 ==

== ENCOUNTER 2023-06-23 12:08 | Outpatient (AMB) | payer MEDICARE, SELFPAY ==
--- NOTE | 2023-06-23 12:21 | MHC.OFFVIS ---
Intake Intake Visit Reasons: PO-RT TKA 06/06/23 Intake Note: Graham is a 73 year old male who presents today for a post op appointment s/p right TKA 06/06/23 Patient reports he is doing well no pain, however having some discomfort. Allergies No Known Allergies [No Known Allergies*] Allergy (Verified 06/23/23 12:21) HPI PO-RT TKA 06/06/23 HPI Details 73-year-old male who presents in the office today 17 days status post right total knee arthroplasty, which was performed on 06/06/[address] Ray. While in the office today the patient reports he is doing well with no pain, but confirms having some discomfort. [facility] Medical History (Updated 06/10/23 @ 00:03 by Maria Dolores Moya) History of melanoma Diabetes BPH (benign prostatic hyperplasia) Right bundle branch block (RBBB) Hx of type 2 diabetes mellitus History of high cholesterol History of high blood pressure Surgical History (Updated 06/23/23 @ 12:30 by Debbi Briggs) Hx of colonoscopy History of melanoma excision Hx of cardiac catheterization History of total left knee replacement (TKR) Social History Household Members: Significant Other Housing: House Are you a primary ambulatory care to a significant other at home: No Do you presently have visiting nurse or other home services: No 75 years or older and lives alone: No Alcohol intake: never Patient Tobacco Use Status: Never used Tobacco service: No Current occupational status: retired Current occupation: right hand dominant Review of Systems Const All systems reviewed & are unremarkable except as noted in HPI and below Physical Exam Const General: cooperative, healthy appearing and no acute distress Resp Effort & Inspection: normal respiratory effort and able to speak in complete sentences Cardio Rate: regular rate Peripheral pulses: Peripheral pulses 2+ throughout GI Palpation (GI): Soft to palpation Skin Lesions: no lesions Rashes: no rashes Extrem Other: Right knee: Incision site is clean, dry, and intact. [place] intact. No surrounding erythema or drainage. No signs of infection. ROM is 0-90 degrees. NVI. Assessment & Plan Assessment & Plan (1) Status post total right knee replacement: Comment: 06/06/2023 Code(s): Z96.651 - Presence of right artificial knee joint Plan Mr. Enriquez is a 73-year-old male who presents in the office today 17 days status post right total knee arthroplasty, which was performed on 06/06/[address] Ray. While in the office today the patient reports he is doing well with no pain, but confirms having some discomfort. Chris were removed and steri-stripes were applied. Dr. Ray was available to see the patient with me while in the office today. The patient will transition to out patient physical therapy at this time. Follow up will be in 6 weeks, or sooner if needed. X-rays of the right knee which were obtained while in the office today and were reviewed by me, Sarahi Strauss PA-C, revealed intact orthopedic hardware with routine healing. Orders: Orders XR knee standing BI 06/23/23 M25.569 - Pain in unspecified knee XR knee RT 2V 06/23/23 M25.569 - Pain in unspecified knee Patient Instructions: Scribed for Sarahi Strauss PA-C by Debbi Briggs biomedical scientist, on 06/23/2023 at 12:11 pm, EST. Coding Level of Care Code Global (63242) Diagnoses Status post total right knee replacement Z96.651
== END 2023-06-23 13:03 | disposition home or self-care (01) ==
PROVIDERS: PCP Internal Medicine; Visit Provider Physician Assistant
DX: Z96.651 Presence of right artificial knee joint (principal)
CPT/HCPCS: 99024

== ENCOUNTER 2023-07-21 14:29 | Outpatient (AMB) | payer MEDICARE, MEDICAID, SELFPAY ==
--- NOTE | 2023-07-21 14:31 | A.OFFVIS_ITS ---
Intake Vital Signs 07/21/23 14:35 Height 5 ft 7 in Weight 240 lb BMI 37.6 Intake Visit Reasons: 6 wk PO right TKA 06/06 Intake Note: Graham is a 73 year old male who presents today for a post op appointment s/p right TKA 06/06/23 Patient reports he feels good and denies any problems. He has completed home physical therapy. He has begun outpatient physical therapy at [facility] in [place]. He denies any fevers or chills. Takes Tylenol which gives him fairly good relief. He is no longer taking narcotics for his pain. Allergies No Known Allergies [No Known Allergies*] Allergy (Verified 07/21/23 14:36) Medication List - Last Reconciled 07/21/23 by Tano Ray MD acetaminophen 650 mg (2 x 325 mg) PO Q6H PRN 30 days amlodipine 5 mg PO BEDTIME aspirin 325 mg PO BID@0600,1800 42 days aspirin 81 mg PO BEDTIME celecoxib 200 mg PO BID 30 days docusate sodium 100 mg PO BID 30 days finasteride 5 mg PO BEDTIME gabapentin 100 mg PO BEDTIME 7 days hydromorphone 2 mg PO Q4H PRN 7 days losartan 25 mg PO BEDTIME metformin 500 mg PO BEDTIME methocarbamol 750 mg PO TID 14 days oxycodone 5 mg PO Q6H PRN 7 days rosuvastatin 5 mg PO BEDTIME tamsulosin 0.8 mg PO BEDTIME PFSH Medical History History of melanoma Diabetes BPH (benign prostatic hyperplasia) Right bundle branch block (RBBB) Hx of type 2 diabetes mellitus History of high cholesterol History of high blood pressure Surgical History Hx of colonoscopy History of melanoma excision Hx of cardiac catheterization History of total left knee replacement (TKR) Social History Household Members: Significant Other Housing: House Are you a primary care trainer to a significant other at home: No Do you presently have visiting nurse or other home services: No 75 years or older and lives alone: No Alcohol intake: never Patient Tobacco Use Status: Never used Tobacco service: No Current occupational status: retired Current occupation: right hand dominant Physical Exam Vital Signs: BMI result Body Mass Index 37.6 Extrem Other: Right knee examination shows that the surgical incision is well healed, no erythema, range of motion from -3 degrees to 100 degrees, his patella tracks well Assessment & Plan Assessment & Plan (1) Status post total right knee replacement: Comment: 06/06/2023 Code(s): Z96.651 - Presence of right artificial knee joint Plan Mr. Enriquez continues to do well after undergoing right total knee replacement surgery on 06/06/2023. He will continue with his outpatient physical therapy program. He does know to take antibiotics before any dental work. He will contact me prior to his appointment in 2 months should any questions or concerns arise. Feel free to call me at should questions regarding his orthopedic management arise. Coding Level of Care Code Global (87191) Diagnoses Status post total right knee replacement Z96.651
[2023-07-21 14:35] VITALS: BMI 37.6
== END 2023-07-21 14:59 | disposition home or self-care (01) ==
PROVIDERS: PCP Internal Medicine; Visit Provider Orthopaedic Surgery
DX: Z96.651 Presence of right artificial knee joint (principal)
CPT/HCPCS: 99024

== ENCOUNTER → 2023-07-21 14:29 | Outpatient (BNVA) | payer MEDICARE, SELFPAY | PROVIDERS: PCP Internal Medicine; Visit Provider Orthopaedic Surgery | DX: Z47.1 Aftercare following joint replacement surgery (principal); Z96.651 Presence of right artificial knee joint | CPT/HCPCS: 99212 ==

== ENCOUNTER 2023-09-15 09:30 | Outpatient (AMB) | payer MEDICARE, SELFPAY ==
[2023-09-15 09:32] VITALS: BMI 37.6
--- NOTE | 2023-09-15 09:32 | MHC.OFFVIS ---
Intake Vital Signs 09/15/23 09:32 Height 5 ft 7 in Weight 240 lb BMI 37.6 Intake Visit Reasons: 6 wk PO right TKA 06/06/23 Intake Note: Graham is a 73 year old male who presents for his post operative appointment s/p Right TKA on 06/06/2023 Patient reports he is doing ok, he still has some soreness and swelling and is using ice every night. The patient also takes meloxicam every few days for his discomfort. He has completed formal physical therapy. Allergies No Known Allergies [No Known Allergies*] Allergy (Verified 09/15/23 09:36) Medication List - Last Reconciled 09/15/23 by Tano Ray MD acetaminophen 650 mg (2 x 325 mg) PO Q6H PRN 30 days amlodipine 5 mg PO BEDTIME aspirin 325 mg PO BID@0600,1800 42 days aspirin 81 mg PO BEDTIME docusate sodium 100 mg PO BID 30 days finasteride 5 mg PO BEDTIME gabapentin 100 mg PO BEDTIME 7 days hydromorphone 2 mg PO Q4H PRN 7 days losartan 25 mg PO BEDTIME meloxicam 15 mg PO DAILY PRN metformin 500 mg PO BEDTIME methocarbamol 750 mg PO TID 14 days oxycodone 5 mg PO Q6H PRN 7 days rosuvastatin 5 mg PO BEDTIME tamsulosin 0.8 mg PO BEDTIME PFSH Medical History History of melanoma Diabetes BPH (benign prostatic hyperplasia) Right bundle branch block (RBBB) Hx of type 2 diabetes mellitus History of high cholesterol History of high blood pressure Surgical History Hx of colonoscopy History of melanoma excision Hx of cardiac catheterization History of total left knee replacement (TKR) Social History Household Members: Significant Other Housing: House Are you a primary early breastfeeding care specialist to a significant other at home: No Do you presently have visiting nurse or other home services: No 75 years or older and lives alone: No Alcohol intake: never Patient Tobacco Use Status: Never used Tobacco service: No Current occupational status: retired Current occupation: right hand dominant Physical Exam Vital Signs: BMI result Body Mass Index 37.6 Const Other: Well-nourished well-developed very friendly male awake alert and oriented x3 in no acute distress Extrem Other: Bilateral lower extremity examination shows good capillary refill, no skin lesions noted, normal sensation light touch Right knee examination shows that the surgical incision is well healed, no erythema, range of motion from -3 degrees to 115 degrees, his patella tracks well Assessment & Plan Assessment & Plan (1) Right knee pain: Code(s): M25.561 - Pain in right knee Plan Mr. Enriquez continues to do very well after undergoing right total knee replacement surgery on 06/06/2023. He will continue with his home exercise program. He does know to take antibiotics before any dental work. He will contact me prior to his follow-up appointment this summer should any questions or concerns arise. Feel free to call me at any time should questions regarding his orthopedic management arise. I spent 22 minutes in reviewing the patient's records and imaging studies, seeing the patient and documenting in the medical record. Coding Level of Care Code Est Pt Level 2 (16055) Diagnoses Right knee pain M25.561
== END 2023-09-15 09:58 | disposition home or self-care (01) ==
PROVIDERS: PCP Internal Medicine; Visit Provider Orthopaedic Surgery
DX: M25.561 Pain in right knee (principal); Z96.651 Presence of right artificial knee joint
CPT/HCPCS: 99213

== ENCOUNTER → 2023-09-15 09:30 | Outpatient (BNVA) | payer MEDICARE, SELFPAY | PROVIDERS: PCP Internal Medicine; Visit Provider Orthopaedic Surgery | DX: M25.561 Pain in right knee (principal); Z47.1 Aftercare following joint replacement surgery; Z96.651 Presence of right artificial knee joint; Z79.899 Other long term (current) drug therapy | CPT/HCPCS: 99212 ==

== ENCOUNTER 2024-01-17 08:08 | Outpatient (REF) | payer MEDICARE, SELFPAY ==
--- NOTE | ~2024-01-17 | XR_ITS ---
EXAMINATION: XR KNEE, RIGHT CLINICAL INFORMATION: Pain. COMPARISON: 06/23/2023. TECHNIQUE: Three views of the right knee. FINDINGS: Redemonstration of total knee arthroplasty. Hardware appears intact. Joint effusion. Alignment maintained. XR/XR knee RT 3V IMPRESSION: Redemonstration of total knee arthroplasty. Hardware appears intact. Joint effusion.
== END 2024-01-17 08:09 | disposition home or self-care (01) ==
LOC: HO.HOSX 08:08
PROVIDERS: Visit Provider Orthopaedic Surgery
DX: Z47.1 Aftercare following joint replacement surgery (principal); Z96.651 Presence of right artificial knee joint
CPT/HCPCS: 73562; 99212

== ENCOUNTER 2024-01-17 09:24 | Outpatient (AMB) | payer MEDICARE, SELFPAY ==
--- NOTE | 2024-01-17 09:41 | A.OFFVIS_ITS ---
Vital Signs 01/17/24 09:42 Height 5 ft 7 in Weight 240 lb BMI 37.6 Intake Visit Reasons: OV-right TKA 06/06/23-follow up Intake Note: Graham is a 73 year old male who presents for routine follow-up after undergoing right total knee replacement surgery on 06/06/2023. Reports mild intermittent discomfort in his right knee. He denies any fevers or chills. He continues wi th his home exercise program. Allergies No Known Allergies [No Known Allergies*] Allergy (Verified 01/17/24 09:44) Medication List - Last Reconciled 01/17/24 by Tano Ray MD acetaminophen 650 mg (2 x 325 mg) PO Q6H PRN 30 days amlodipine 5 mg PO BEDTIME aspirin 325 mg PO BID@0600,1800 42 days aspirin 81 mg PO BEDTIME docusate sodium 100 mg PO BID 30 days finasteride 5 mg PO BEDTIME gabapentin 100 mg PO BEDTIME 7 days hydromorphone 2 mg PO Q4H PRN 7 days losartan 25 mg PO BEDTIME meloxicam 15 mg PO DAILY PRN metformin 500 mg PO BEDTIME methocarbamol 750 mg PO TID 14 days oxycodone 5 mg PO Q6H PRN 7 days rosuvastatin 5 mg PO BEDTIME tamsulosin 0.8 mg PO BEDTIME PFSH Medical History History of melanoma Diabetes BPH (benign prostatic hyperplasia) Right bundle branch block (RBBB) Hx of type 2 diabetes mellitus History of high cholesterol History of high blood pressure Surgical History Hx of colonoscopy History of melanoma excision Hx of cardiac catheterization History of total left knee replacement (TKR) Social History Household Members: Significant Other Housing: House Are you a primary pet care attendant to a significant other at home: No Do you presently have visiting nurse or other home services: No 75 years or older and lives alone: No Alcohol intake: never Patient Tobacco Use Status: Never used Tobacco service: No Current occupational status: retired Current occupation: right hand dominant Physical Exam Vital Signs: BMI result Body Mass Index 37.6 Const Other: Well-nourished well-developed very friendly male awake alert and oriented x3 in no acute distress Extrem Other: Bilateral lower extremity examination shows good capillary refill, no skin lesions noted, normal sensation light touch Right knee examination shows that the surgical incision is well healed, no erythema, full active extension and flexion to 120 degrees, his patella tracks well Results Reviewed Results Reviewed: X-rays of the patient's right knee show a total knee arthroplasty in good position with no signs of loosening, no acute bony abnormalities Assessment & Plan Assessment & Plan (1) Right knee pain: Code(s): M25.561 - Pain in right knee Category: Medical Plan Mr. Enriquez continues to do very well after undergoing right total knee replacement surgery on 06/06/2023. He will continue with his home exercise program. Does know to take antibiotics before any dental work. He will contact me prior to his annual follow-up appointment should any questions or concerns arise. Feel free to call me at any time should questions regarding his orthopedic management arise. I spent 22 minutes in reviewing the patient's records and imaging studies, seei ng the patient and documenting in the medical record. Orders: Orders XR knee RT 3V Today M25.561 - Pain in right knee Coding Level of Care Code Est Pt Level 3 (29756) Diagnoses Right knee pain M25.561
[2024-01-17 09:42] VITALS: BMI 37.6
== END 2024-01-17 09:58 | disposition home or self-care (01) ==
PROVIDERS: PCP Internal Medicine; Visit Provider Orthopaedic Surgery
DX: M25.561 Pain in right knee (principal); Z96.651 Presence of right artificial knee joint
CPT/HCPCS: 99213

== ENCOUNTER 2024-06-14 05:57 | Emergency (ER) | payer MEDICARE, SELFPAY ==
--- NOTE | 2024-06-14 | ECG_ITS ---
Test Reason : ABD PAIN Blood Pressure : / mmHG Vent. Rate : 071 BPM Atrial Rate : 071 BPM P-R Int : 142 ms QRS Dur : 092 ms QT Int : 394 ms P-R-T Axes : 010 092 -06 degrees QTc Int : 428 ms Normal sinus rhythm Rightward axis Incomplete right bundle branch block Abnormal QRS-T angle, consider primary T wave abnormality Abnormal ECG No previous ECGs available Referred By: Generic ED Physician Electronically Signed By:LAVINIA RODRIGUES MD
--- NOTE | ~2024-06-14 | CT_ITS ---
EXAMINATION: CT ABDOMEN AND PELVIS WITH CONTRAST CLINICAL INFORMATION: Left lower quadrant abdominal pain. COMPARISON: None available. TECHNIQUE: Multidetector volumetric images were obtained from the superior aspect of the liver through the pubic symphysis following administration 85 mL of Omnipaque 350 intravenous contrast. Sagittal and coronal reformatted images were obtained on the technologist's workstation. Oral contrast: No This CT examination was performed using dose optimization techniques as appropriate, variously including the following: *Automated exposure control *Adjustment of mA and/or kV according to patient size (this includes techniques or standardized protocols for targeted exams where dose is matched to indication/reason for exam; i.e. extremities or head) *Use of iterative reconstruction technique DLP: 811 mGy-cm FINDINGS: LUNG BASES: No acute airspace disease or gross pulmonary nodules in the included lungs. Calcified plaques in the coronary arteries and descending thoracic aorta. LIVER, GALLBLADDER, AND BILIARY TREE: Liver measures 16 cm. Decreased enhancement pattern. No focal mass. Portal veins, hepatic veins and intrahepatic portion of the IVC are patent. No pericholecystic fluid collection or gallbladder wall thickening. No intrahepatic or extrahepatic biliary ductal dilatation. PANCREAS: No focal mass. No peripancreatic fluid collections. Fatty morphology in the uncinate process, head and and body head junction. No main pancreatic ductal dilatation. SPLEEN: 10 cm. No focal mass. ADRENAL GLANDS: No nodular lesions. KIDNEYS AND URETERS: There is a 2 mm calculus at the ureteropelvic junction resulting in mild dilatation of the pelvicalyceal system, left kidney. There is decreased enhancement pattern of the left renal parenchyma with respect to the contralateral side. There are few scattered less than 3 mm calculi in the pelvicalyceal system lower pole left kidney. There is a 9 cm exophytic cyst, lower pole left kidney. There are multifocal different sizes, low density lesions throughout the corticomedullary junction of the right kidney. BLADDER: There is an heterogeneous fluid and enlarged, 14 cm prostate gland extending into the urinary bladder floor. There is a trabeculated thickening of the posterior margin of the bladder wall. Intraluminal calculi measuring less than 5 mm. GASTROINTESTINAL TRACT: Numerous diverticula throughout the large intestine from the cecum to the sigmoid colon. Abundant stool. There is a focal, 1.8 cm fat density in the antimesenteric margin of the mid sigmoid colon. No intestinal obstruction pattern. No ascites. No pneumoperitoneum. No pneumatosis intestinalis. Appendix is normal. Terminal ileum is normal. There is a duodenum diverticulum in the second portion. Small hiatal hernia. ABDOMINAL WALL: Fat-containing umbilical hernia with diastases abdominal rectus muscles. Fat-containing left inguinal hernia. LYMPH NODES: There is lymphadenopathy in the anterior iliac, retroperitoneum and to a lesser extent mesentery. VASCULAR: No aneurysm or dissection, abdominal aorta. Calcified plaques throughout the abdominal aorta wall and iliac arteries. PELVIC VISCERA: Heterogeneously enlarged, 14 cm prostate gland extending into the urinary bladder floor and likely intraluminal with extension into the seminal vesicles. OSSEOUS STRUCTURES: Multilevel thoracolumbar spondylosis without acute fracture or gross listhesis. Syndesmophyte formation in the sacroiliac joints. No lytic or lytic lesions. CT/CT abdomen pelvis w IV con IMPRESSION: 2 mm obstructing calculus at the left ureteropelvic junction resulting in mild left hydronephrosis. Concerning prostate malignancy infiltrating the bladder with associated lymphadenopathy. Diverticular disease. Questionable epiploic appendagitis. Bilateral renal cysts. Small fat-containing umbilical hernia. Fleischner guidelines were followed. Electronically signed by: Hero Serrano MD 06/14/2024 07:35 AM EST
--- OUTSIDE RECORDS SUMMARY | 2024-06-14 06:00 | XMS_ITS | Data Portability ---
Author Organization [place] [facility] AONE [place] Address [address] [facility] [address] [place] [address] Assessment Encounter Date Assessment Date Assessment LastModified by Organization Details LastModified Time 10/05/2022 10/05/2022 Pleasant 72-year-old male status post fall that occurred last due to misjudging a step . He has severe end-stage osteoarthritis of the right knee with prospective future right knee replacement sometime in the fall 2022. He has notable joint effusion however he stated the impact of the fall was approximately 6 inches with a low velocity. This is likely an arthritic flare. We discussed treatment options for which she opted for aspiration followed by cortisone injection. After verbal consent was granted by the patient. The procedure was carried out for which she tolerated well. He stated 1000% improvement . He stated flexion was much better for which he was retested at 0 to 115 degrees. He was able to weight-bear without difficulty. I did offer him a hinged knee brace for which he declined. He was reinstructed on how to properly hold the cane in his left hand. Due to the Swelling I did want him going for an ultrasound however he declined this. He understands the associated risks if a clot is present including risk for pulmonary embolism and . He states he will call if his symptoms do not improve. I would like to see him in a week for which she agreed upon. He was discharged in stable condition with notable improvement. He was instructed to go to the ER if he does exhibit shortness of breath or worsening calf pain. Indirect care and treatment in conjunction with Dr. Ray Additional treatment plan discussed with the patient in detail included the following; - Provider focused nonsteroidal anti-inflammatory regimen (discussed were the pros, cons, benefits and risks as well as any black box warnings) - Analgesic pain medication for pain suppression (discussed were the pros, cons, benefits and risks as well as any black box warnings) - The use of topical pain relieving medication were discussed - The use of ice to decrease inflammation and pain - The use of assistive ambulatory devices for ambulation and fall prevention - Formal specific guided physical therapy program I reviewed my findings at length with the patient today. ??We discussed the nature and etiology of this problem along with current treatment options. We discussed the expected course and outcomes and what to expect. We also discussed risks and benefits. ??All of their questions were answered today, and there was exhibited understanding and comprehension of all that was discussed. 10 minutes were spent reviewing previous imaging and charting. ??10 minutes were spent obtaining patient history. ??5 minutes were spent on physical exam. ??5??minutes were spent explaining diagnosis and assessment. Today's documentation was made using voice recognition software. This note may contain grammatical errors secondary to the software. [email or web address] Not available 10/05/2022 13:41:28 Plan of Treatment Reminders Order Date Submit Date Provider Last Modified By Organization Details Last Modified Time Details Appointments None recorded. Lab None recorded. Referral None recorded. Procedures None recorded. Surgeries None recorded. Imaging XR, knee, 4 or more view 2022 023 [email or web address] [facility], [address], [place] [address], [place], [address], 14:08:30 Medication Orders Kenalog 40 mg/mL suspension for injection 2022 023 [email or web address] [id number], [address] [place], [address], 13:41:52 lidocaine (PF) 10 mg/mL (1 %) injection solution 2022 023 [email or web address] [id number], [address] [place], [address], 13:41:52 Patient TargetsNo targets recorded. Patient Instructions Encounter Date Encounter Id Patient Instructions Last Modified By Organization Details Last Modified Time 10/05/2022 [id number] You have been provided with a cortisone injection in order to reduce the pain and inflammation that you are experiencing. The injection consists of two medications. Cortisone (an anti-inflammatory that will take 48-72 hours to take effect) and Lidocaine (a numbing agent that will last 2-3 hours). Please note that not everyone will have a lasting response following the injection. PATIENT INSTRUCTIONS Once the Lidocaine wears off, you may have an increase in your pain. I recommend icing the affected area for 20 minutes 3-4 times per day. It is recommended that you refrain from any high level activities using the joint or limb that was injected for approximately 24-48 hours. Normal day-to-day activities are generally not a problem. POSSIBLE SIDE EFFECTS Individuals with dark complexions may experience some skin discoloration locally at the site of the injection. There is the possibility of an increase in discomfort within 48 hours following the injection. This is called a ? flare? . To help minimize the chances of this, please see the post-injection instructions above. There is a less than 1% chance of an infection. If you notice any signs of infection (redness, warmth, drainage, fever greater than 100 degrees) please call our office or contact us through the portal JUDY. Not available 10/05/2022 13:36:33 4 view x-ray rig ht knee reveals severe grade 4 degenerative changes throughout all 3 compartments, subchondral sclerosis, osteophyte formation throughout. No obvious acute bony abnormality no obvious fracture or dislocation. Not available 10/05/2022 13:05:09 Reason for Referral None Reported. Problems Name Problem SNOMED Code Status Onset Date Resolution Date Notes Provider Name and Address Organization Details Recorded Time Arthritis of right knee 47371668815826 02 Active 2022 MARY ANN BARRERA PA-C [address], [place], [address], [place] [facility], [facility] 3 13:37:11 Effusion of joint of right knee 84637317581018 4 Active 2022 MARY ANN BARRERA PA-C [address], [place], [address], [place] [facility], [facility] 3 13:38:24 Pain of right calf 44029168121558 03 Active 2022 MARY ANN BARRERA PA-C [address] [facility],[address], [place], [address], [facility], P 3 13:41:49 Problem Notes None recorded. Procedures Surgical History Date Name Laterality Status Provider Name and Address Organization Details Recorded Time 10/05/2022 Knee Joint/Burs a Asp & Inj completed MARY ANN BARRERA PA-C [address] [facility],[address], [place], [address], [facility] 10/05/2022 13:32:53 Imaging Results None recorded. Procedure Notes None recorded. Medical Equipment None Reported. Allergies Allergen ID Allergen Name Allergen Category Reaction Reaction Severity Criticality Documentation Date Start Date Code Code System Note Provider Name and Address Organization Details Recorded Time 1500 simvastat in medicatio n Not available Not available Not available 10/05/2022 56707 RxNorm Genoveva reyes, [facility], P 12:48:40 Medications Name Sig Start Date Stop Date Status Note LastModified by Organization Details LastModified Time atorvastatin 40 mg tablet TAKE 1 TABLET BY MOUTH EVERY DAY FOR 90 DAYS active Not Available Not Available No t Available nitrofuranto in macrocrystal 50 mg capsule TAKE ONE CAP AT NIGHT MON- WED- FRI/AFTER CIPRO COMPLETED active Not Available Not Available No t Available sulfamethoxa zole 400 mg-trimethop rim 80 mg tablet TAKE 1 TABLET BY MOUTH TWICE A DAY FOR 7 DAYS active Not Available Not Available No t Available betamethason e, augmented 0.05 % topical cream APPLY TO AFFECTED AREAS OF ECZEMA TWICE A DAY active Not Available Not Available Not Available ciprofloxaci n 250 mg tablet TAKE 1 TABLET BY MOUTH TWICE A DAY active Not Available Not Available No t Available amlodipine 5 mg tablet TAKE 1 TABLET BY MOUTH EVERY DAY FOR 90 DAYS active Not Available Not Available No t Available tramadol 50 mg tablet TAKE 1 TABLET DAILY NEEDED FOR PAIN active Not Available Not Available No t Available triamcinolon e acetonide 0.1 % topical cream APPLY THIN LAYER TO AFFECTED AREA EXTERNALLY TWICE A DAY active Not Available Not Available Not Available Kenalog 40 mg/mL suspension for injection Take 1 mL by injection route. 2022 active Not Available Not Available Not Avai lable tamsulosin 0.4 mg capsule TAKE 2 CAPSULES BY MOUTH AT BEDTIME FOR 90 DAYS active Not Available Not Available No t Available losartan 25 mg tablet TAKE 1 TABLET BY MOUTH EVERY DAY active Not Available Not Available No t Available finasteride 5 mg tablet TAKE 1 TABLET BY MOUTH EVERYDAY AT BEDTIME active Not Available Not Available No t Available aspirin active Not Available Not Avail able Not Available amoxicillin active Not Available Not A vailable Not Available Lipitor active Not Available Not Avail able Not Available nitroglyceri n active Not Available Not Available Not Available Flomax active Not Available Not Availa ble Not Available Proscar active Not Available Not Avail able Not Available losartan active Not Available Not Avai lable Not Available Lamisil active Not Available Not Avail able Not Available Prilosec active Not Available Not Avai lable Not Available Dilaudid active Not Available Not Avai lable Not Available gabapentin active Not Available Not Av ailable Not Available Celebrex active Not Available Not Avai lable Not Available lidocaine (PF) 10 mg/mL (1 %) injection solution Take 1 mL by injection route. 2022 active Not Available Not Available Not Avai lable Brilinta active Not Available Not Avai lable Not Available BinaxNOW COVID-19 Ag Self Test kit DIRECTED. active Not Available Not Available No t Available Vitals None Recorded Social History None recorded. Functional Status None recorded. Mental Status None recorded. Family History Nothing Reported. Medical History Condition Response Diabetes Y Past Encounters Encounter ID Performer Location Encounter Start Date Encounter Closed Date Diagnosis/Indication Diagnosis SNOMED-CT Code Diagnosis ICD10 Code [id number] MD LACY Chahal [address] [place] [id number] 10/05/2022 12:47:29 10/05/2022 13:30:17 Pain of right knee joint 2692002124 92528 M25.561 Arthritis of right knee 7227339197 982253 M13.861 Effusion o f joint of right knee 9770074140 09071 M25.461 Pain of right calf 69979 14713 787633 M79.661 Health Concerns Section Related Observation LastModified by Organization Detai ls LastModified Time None Recorded Concern Status LastModified by Organization Details LastModified Time None Recorded Advance Directives Directive None Recorded Payers Encounter Date Sequence Insurance Name Policy Number Policy Ferris Covered Member ID Ferris Member ID Guarantor Name 10/05/2022 1 [place] [employer] Graham Amayaor [id number] Graham Enriquez 10/05/2022 2 [place] BL[place] [facility] [id number] Graham Oliviaelor [id number] Graham Enriquez Notes Date Note Type Note Provider Name and Address Organization Details Recorded Time 10/05/2022 text/html This is a pleasa nt 72-year-old male here for evaluation status post fall last week. Patient states he was at a gas station in which he thought his foot was on the ground but misjudged the step . He states he fell landing on his right knee. He states that he has had swelling throughout his knee with calf and posterior knee discomfort since. Here for evaluation and treatment. He is accompanied by his spouse at today's visit. He has a past history of left total knee replacement performed by Dr. Ray on April 27, 2021 for which she states he did not injure his knee replacement knee. He states he has been using a cane. He denies any shortness of breath, fevers or chills or flulike symptoms. States he is a type II diabetic however he has been instructed by his primary care that he does not need to check his sugars MARY ANN BARRERA PA-C [address] [place] [address], [phone], [place] [facility] 10/05/2022 13:42:42
[2024-06-14 06:03] VITALS: BP 168/69; PULSE 69; RESP 18; TEMP 36.2; O2SAT 98; BMI 36.9
[2024-06-14 06:15] VITALS: RESP 18
[2024-06-14] MEDS: Morphine Sulfate 4 MG/ML CARTRIDGE IVPUSH (06:15)
[2024-06-14] MEDS: ondansetron HCL 4 MG/2 ML VIAL IVPUSH (06:15)
[2024-06-14 06:17] LABS: Basophils Absolute Auto 0.1 X10*3/uL (0.0-0.2); Basophils Percent Auto 0.4 % (0-2); Eosinophils Absolute Auto 0.1 X10*3/uL (0.0-0.4); Eosinophils Percent Auto 0.8 % (0-4); Hematocrit 42.4 % (42.0-52.0); Hemoglobin 14.7 g/dl (14.0-18.0); Imm Gran Abs Auto 0.07 X10*3/uL (0.00-0.03); Imm Gran Pct Auto 0.6 % (0.0-0.4); Lymphocytes Absolute Auto 1.3 X10*3/uL (1.2-4.9); Lymphocytes Percent Auto 11.5 % (20-40); Mean Corpuscular HGB Conc 34.7 g/dl (31.0-36.0); Mean Corpuscular Volume 89.5 fL (80.0-98.0); Mean Platelet Volume 9.3 fL (9.4-12.4); Monocytes Absolute Auto 0.8 X10*3/uL (0.1-1.2); Monocytes Percent Auto 6.7 % (2-11); Neutrophils Absolute Auto 9.1 x10*3/uL (2.0-8.3); Platelet Count 235 X10*3/uL (160-400); Red Blood Count 4.74 X10*6/uL (4.60-5.80); Red Cell Distribution Width 12.8 % (11.0-16.0); White Blood Count 11.3 X10*3/uL (4.8-10.8)
[2024-06-14 06:18] LABS: MANUAL DIFF FLAG NO
--- NOTE | 2024-06-14 06:23 | ED_ITS ---
HPI - General Adult General Chief complaint: Abdominal Pain Stated complaint: abdominal pain Time Seen by Provider: 06/14/24 06:23 Source: patient Mode of arrival: ambulatory Limitations: no limitations History of Present Illness ED Provider: Davie MONTALVO narrative: This is a 74-year-old male with history of T2DM, BPH, RBBB, , CAD, HTN, high cholesterol presenting to the emergency department with complaint of left lower quadrant abdominal pain for the past week, worsening over the past two days. Describes pain as intermittent and severe. This morning had associated nausea and forced himself to vomit, thinking this might relieve his symptoms. Otherwise denies nausea, vomiting, diarrhea, constipation. Reports that he has had acid reflux which he typically does not experience. He does note that his symptoms do not feel similar to prior cardiac pain. Denies hematuria, dysuria or other urinary symptoms. Does report some difficulty initiating urine stream but reports this is his baseline. Reports his pain did radiate around to his back at times this week. MD complaint: abdominal pain Onset (ago): day(s) Location: abdomen Radiation: back Quality: aching Pain Consistency: intermittent Associated symptoms: nausea/vomiting Related Data Home Medications ?Medication ?Instructions ?Recorded ?Confirmed amlodipine 5 mg tablet 5 mg PO BEDTIME 12/29/22 01/17/24 aspirin 81 mg capsule 81 mg PO BEDTIME 12/29/22 01/17/24 finasteride 5 mg tablet 5 mg PO BEDTIME 12/29/22 01/17/24 losartan 25 mg tablet 25 mg PO BEDTIME 12/29/22 01/17/24 metformin 500 mg tablet 500 mg PO BEDTIME 12/29/22 01/17/24 tamsulosin 0.4 mg capsule 0.8 mg PO BEDTIME 12/29/22 01/17/24 rosuvastatin 5 mg tablet 5 mg PO BEDTIME 05/30/23 01/17/24 Previous Rx's ?Medication ?Instructions ?Recorded acetaminophen 325 mg tablet 650 mg (2 x 325 mg) PO Q6H PRN 06/07/23 Pain, Mild (Pain Scale 1-3) 30 days #240 tabs aspirin 325 mg tablet 325 mg PO BID@0600,1800 42 days 06/07/23 #240 tabs docusate sodium 100 mg capsule 100 mg PO BID 30 days #60 caps 06/07/23 gabapentin 100 mg capsule 100 mg PO BEDTIME 7 days #7 caps 06/07/23 methocarbamol 750 mg tablet 750 mg PO TID 14 days #42 tabs 06/07/23 hydromorphone 2 mg tablet 2 mg PO Q4H PRN Pain, Severe (Pain 06/08/23 Scale 7-10) 7 days #42 tabs oxycodone 5 mg tablet 5 mg PO Q6H PRN pain 7 days #28 06/23/23 tabs meloxicam 15 mg tablet 15 mg PO DAILY PRN pain #30 tabs 03/14/24 ketorolac 10 mg tablet 10 mg PO Q8H PRN pain #10 tabs 06/14/24 metoclopramide HCl 10 mg tablet 10 mg PO Q8H PRN nausea and 06/14/24 vomiting #10 tabs morphine 15 mg immediate release 15 mg PO Q8H PRN severe pain 06/14/24 tablet (scale score 7-10) #10 tabs prednisone 20 mg tablet 20 mg PO DAILY #7 tabs 06/14/24 Allergies Allergy/AdvReac Type Severity Reaction Status Date / Time No Known Allergies Allergy Verified 06/14/24 06:06 [No Known Allergies*] Review of Systems 2 Review of Systems: As per MDM Yes all other systems are reviewed and are negative Constitutional: Constitutional: Reports as per HPI [facility] Past Medical History Medical History History of melanoma Diabetes BPH (benign prostatic hyperplasia) Right bundle branch block (RBBB) Hx of type 2 diabetes mellitus History of high cholesterol History of high blood pressure Surgical History Hx of colonoscopy History of melanoma excision Hx of cardiac catheterization History of total left knee replacement (TKR) Social History Social History Household Members: Significant Other Housing: House Are you a primary administrator health care facility to a significant other at home: No Do you presently have visiting nurse or other home services: No Alcohol intake: never Patient Tobacco Use Status: Never used Tobacco Smoked in Last 30 Days: No Use of substances other than those prescribed or required for medical reasons: No Advance Directives: Yes Advance Directives on File: Yes Advance Directives Date on File: 12/07/23 Do you have a plan to hurt others: No Plan service: No Current occupational status: retired Current occupation: right hand dominant Physical Exam ED Vital Signs: Vital Signs - 24 hr 06/14/24 06:03 06/14/24 06:15 Temperature 97.2 F Pulse Rate 69 Respiratory Rate 18 18 Blood Pressure 168/69 H Pulse Oximetry 98 Oxygen Delivery Method Room Air BMI result Body Mass Index 36.9 Vital signs have been reviewed and appear to be correct. Blood pressure elevated. Heart rate normal. Respiratory rate normal. Temperature normal. Oxygen saturation normal. Const General: cooperative, healthy appearing and no acute distress Orientation/consciousness: oriented to person, oriented to place, oriented to time and patient oriented x3 Limitations: no limitations HENMT Head: Yes normocephalic and Yes atraumatic Ears: external ears normal General nose exam: Normal external nose present Face and sinus: Yes face symmetric Mouth: oropharynx normal and moist mucous membranes Throat: Yes uvula midline Eyes Pupils: Equal, round and reactive pupils present Neck Neck: Yes normal visual inspection and Yes supple Resp Effort & Inspection: normal respiratory effort and able to speak in complete sentences Auscultation: clear to auscultation bilaterally Cardio Rate: regular rate Rhythm: regular rhythm Heart sounds: S1 normal heart sound present and S2 normal heart sound present GI Palpation (GI): Soft to palpation, Tenderness to palpation present (GI) in the RLQ and in the RUQ, no guarding and No Rebound tenderness present Auscultation: normoactive bowel sounds General: Yes no CVA tenderness Back/Spine/Pelvis Back: no CVA tenderness Skin General skin exam: elasticity normal and turgor normal Neuro General: oriented to person, oriented to place, oriented to time, patient oriented x3, moves all extremities, no focal motor deficits and CN's II-XI intact bilaterally Cranial nerves: Yes Equal, round and reactive pupils present Cognition (Neuro): normal cognition Extrem General: Yes full ROM, Yes no pedal edema and Yes no calf tenderness Psych Mental Status: mental status grossly normal Affect: normal affect Thought process: Normal thought process present Medications Administered Discontinued Medications Generic Name Dose Route Start Last Admin Trade Name Freq PRN Reason Stop Dose Admin Iohexol 85 ml 06/14/24 06:53 06/14/24 06:54 Iohexol 350 Mg/Ml 100 Ml Infus..Btl IV 06/14/24 06:54 85 ml ONCE ONE Administration Morphine Sulfate 4 mg 06/14/24 06:07 06/14/24 06:15 Morphine Sulfate 4 Mg/Ml Cartridge IVPUSH 06/14/24 06:08 4 mg ONCE ONE Administration Protocol Ondansetron HCl 4 mg 06/14/24 06:07 06/14/24 06:15 Ondansetron Hcl 4 Mg/2 Ml Vial IVPUSH 06/14/24 06:08 4 mg ONCE ONE Administration Medical Decision Making Medical Decision Making [facility] Narrative: This is a 74-year-old male with history of T2DM, BPH, RBBB, , CAD, HTN, high cholesterol presenting to the emergency department with complaint of left lower quadrant abdominal pain for the past week, worsening over the past two days. On exam patient is awake, A+Ox3, BP elevated, VS otherwise WNL, afebrile, normal neurological exam without focal deficits, physical exam findings as above. Given reported symptoms and physical exam findings, initial differential includes UTI, pyelonephritis, renal/ureteral calculi, diverticulitis with or without perforation/abscess. Labs notable for mild leukocytosis. No evidence of infection on UA. CT notable for 2mm obstructing calculi at left UPJ with mild left hydronephrosis, concerning prostate malignancy infiltrating the bladder with associated lymphadenopathy. My interpretation is in agreement with the radiologist's interpretation. Case discussed with Dr. Degroot, urologist, who recommends outpatient follow up with both the calculi as well as the malignancy. Results discussed with patient and all questions answered. Patient states that he already sees Dr. Vaughn at [facility]. Advised him to call the urology office today to discuss results and schedule a follow up appointment. Will discharge home on prednisone, zofran, pain medication, patient is already on tamsulosin. Return precautions discussed at bedside. Patient verbalized understanding of and agreement with plan. Differential Diagnosis Differential Diagnoses: The differential diagnosis associated with the presentation includes As per [facility]. Admission/Observation Consideration of admission/observation: Escalation of care including admission/observation considered Patient would have been admitted to the hospital had their work up had any findings where hospital admission was appropriate and their clinical presentation warranted hospital admission. Lab Data [facility] Lab Attestation statement: I reviewed the patient's lab results. As per [facility] 06/14/24 06:12 12/12/24 06:12 Labs: Lab Results 06/14/24 06/14/24 Range/Units 06:12 07:52 WBC 11.3 H (4.8-10.8) X10*3/uL RBC 4.74 D (4.60-5.80) X10*6/uL Hgb 14.7 D (14.0-18.0) g/dl Hct 42.4 D (42.0-52.0) % MCV 89.5 (80.0-98.0) fL MCH 31.0 (27.0-33.0) pg MCHC 34.7 (31.0-36.0) g/dl RDW 12.8 (11.0-16.0) % Plt Count 235 (160-400) X10*3/uL MPV 9.3 L (9.4-12.4) fL Immature Gran % (Auto) 0.6 H (0.0-0.4) % Neut % (Auto) 80.0 H (45-73) % Lymph % (Auto) 11.5 L (20-40) % [place] % (Auto) 6.7 (2-11) % Eos % (Auto) 0.8 (0-4) % Baso % (Auto) 0.4 (0-2) % Lymph # (Auto) 1.3 (1.2-4.9) X10*3/uL [place] # (Auto) 0.8 (0.1-1.2) X10*3/uL Eos # (Auto) 0.1 (0.0-0.4) X10*3/uL Baso # (Auto) 0.1 (0.0-0.2) X10*3/uL Abs Immat Gran (auto) 0.07 H (0.00-0.03) X10*3/uL Absolute Neuts (auto) 9.1 H (2.0-8.3) x10*3/uL Absolute Nucleated RBC 0.000 (0.0-0.012) X10*3/uL Nucleated RBC % (auto) 0.0 (0.0-0.2) /100WBC Sodium 143 (135-145) mmol/L Potassium 4.1 (3.3-5.1) mmol/L Chloride 111 H (96-108) mmol/L Carbon Dioxide 24 (22-29) mmol/L Anion Gap 12 (12-20) BUN 20 H (9-16) mg/dL Creatinine 1.39 (0.5-1.4) mg/dL Estim Creat Clear Calc 55.2 Estimated GFR 50 Random Glucose 157 H (60-115) mg/dL Calcium 10.1 D (8.4-10.2) mg/dL Total Bilirubin 0.4 (0.0-1.0) mg/dL AST 20 (5-37) U/L ALT 16 (0-40) U/L Alkaline Phosphatase 67 (39-117) U/L Troponin I High Sens 3.5 (<3.5-35.0) ng/L Total Protein 7.2 (6.5-8.0) g/dL Albumin 4.2 (3.5-5.0) g/dL Lipase 24 (8-78) U/L Urine Color Yellow Urine Appearance Clear Urine pH 5.5 (5.0-9.0) Ur Specific [place] >= 1.030 H (1.005-1.025) Urine Protein 30 (1+) H (Neg-Trace) mg/dL Urine Glucose (UA) 100 H (Negative) mg/dL Urine Ketones Negative (Negative) mg/dL Urine Blood Large (3+) H (Negative) Urine Nitrite Negative (Negative) Ur Leukocyte Esterase Negative (Negative) Urine RBC >20 H (0-2) /HPF Urine WBC 0-5 (0-5) /HPF Ur Squamous Epith Cells 3-5 (0-2) /HPF Urine Bacteria None Seen (None Seen) Hyaline Casts 3-5 (0-2) /LPF Independent Interpretation I performed an independent interpretation of an: CT Scan Interpretation: CT notable for 2mm obstructing calculi at left UPJ with mild left hydronephrosis, concerning prostate malignancy infiltrating the bladder with associated lymphadenopathy. Radiology Impression Discussion of test interpretation with radiology: I have reviewed the radiologist's reading. Radiologist Impression: CT/CT abdomen pelvis w IV con IMPRESSION: 2 mm obstructing calculus at the left ureteropelvic junction resulting in mild left hydronephrosis. Concerning prostate malignancy infiltrating the bladder with associated lymphadenopathy. Diverticular disease. Questionable epiploic appendagitis. Bilateral renal cysts. Small fat-containing umbilical hernia. External Record Review External record reviewed: Inpatient record, Office record and Outpatient record Prescription Management I considered prescription management with: Pain Medication and Other Discharge Plan Discharge Clinical Impression: Calculus of left ureter Patient Disposition: Home, Self-Care Instructions: Renal Colic (ED), How to Strain Your Urine (ED), Hydronephrosis (ED), Ureteral Stones (ED) Additional Instructions: You were evaluated in the emergency department for flank pain. Your CT scan showed evidence of a stone in your left ureter. The stone is 2 mm which will likely pass on its own. Your are being provided with a urine strainer to use at home, instructions are included in your discharge paperwork. You are being prescribed prednisone to decrease inflammation, and morphine which you can use as needed for severe pain. You can also take 600 mg of ibuprofen every 6 hours as needed for pain. Your being prescribed ondansetron which you can use every 8 hours as needed for nausea. Your CT scan also shows a concerning malignancy of your prostate spreading to your bladder. WE RECOMMEND THAT YOU CALL YOUR UROLOGIST TODAY TO SCHEDULE A FOLLOW UP APPOINTMENT. Return to the emergency department if you develop worsening pain, persistent vomiting, fever 100.4? or greater, inability to urinate, or any other concerning symptoms. CT/CT abdomen pelvis w IV con IMPRESSION: 2 mm obstructing calculus at the left ureteropelvic junction resulting in mild left hydronephrosis. Concerning prostate malignancy infiltrating the bladder with associated lymphadenopathy. Diverticular disease. Questionable epiploic appendagitis. Bilateral renal cysts. Small fat-containing umbilical hernia. Prescriptions: New prednisone 20 mg tablet 20 mg PO DAILY Qty: 7 0RF metoclopramide HCl 10 mg tablet 10 mg PO Q8H PRN (Reason: nausea and vomiting) Qty: 10 0RF ketorolac 10 mg tablet 10 mg PO Q8H PRN (Reason: pain) Qty: 10 0RF Rx Instructions: maximum total duration of 5 days from all oral, intranasal, or parenteral formulations morphine 15 mg tablet 15 mg PO Q8H PRN (Reason: severe pain (scale score 7-10)) Qty: 10 0RF Rx Instructions: Partial Fill upon patient request. No Action hydromorphone 2 mg tablet 2 mg PO Q4H PRN (Reason: Pain, Severe (Pain Scale 7-10)) 7 Days Qty: 42 0RF Rx Instructions: Partial Fill upon patient request. oxycodone 5 mg tablet 5 mg PO Q6H PRN (Reason: pain) 7 Days Qty: 28 0RF Rx Instructions: Partial Fill upon patient request. meloxicam 15 mg tablet 15 mg PO DAILY PRN (Reason: pain) Qty: 30 3RF rosuvastatin 5 mg tablet 5 mg PO BEDTIME methocarbamol 750 mg Tablet 750 mg PO TID 14 Days Qty: 42 0RF acetaminophen 325 mg Tablet 650 mg PO Q6H PRN (Reason: Pain, Mild (Pain Scale 1-3)) 30 Days Qty: 240 0RF aspirin 325 mg Tablet 325 mg PO BID@0600,1800 42 Days Qty: 240 0RF docusate sodium 100 mg Capsule 100 mg PO BID 30 Days Qty: 60 0RF gabapentin 100 mg Capsule 100 mg PO BEDTIME 7 Days Qty: 7 0RF metformin 500 mg tablet 500 mg PO BEDTIME finasteride 5 mg tablet 5 mg PO BEDTIME amlodipine 5 mg tablet 5 mg PO BEDTIME tamsulosin 0.4 mg capsule 0.8 mg PO BEDTIME losartan 25 mg tablet 25 mg PO BEDTIME aspirin 81 mg capsule 81 mg PO BEDTIME Referrals: Santhosh Vaughn MD [Physician] - Print Language: Hungarian
--- NOTE | 2024-06-14 06:33 | PC.NURSE ---
pt from home, a&ox4, respirations even and unlabored. pt reporting lower left quadrant pain radiating into the left flank x1 week, pt reports he woke up around 3am with the pain increased. pt reporting nausea and vomiting denies diarrhea and any urinary symptoms. on arrival into room, pt throwing up yellow vomit. 18G placed in left ac, labs obtained, pt medicated per sep.
[2024-06-14 06:34] LABS: Alanine Aminotransferase 16 U/L (0-40); Albumin Level 4.2 g/dL (3.5-5.0); Alkaline Phosphatase 67 U/L (39-117); Anion Gap 12 (12-20); Aspartate Amino Transferase 20 U/L (5-37); Bilirubin Total 0.4 mg/dL (0.0-1.0); Blood Urea Nitrogen 20 mg/dL (9-16); Calcium 10.1 mg/dL (8.4-10.2); Carbon Dioxide 24 mmol/L (22-29); Chloride 111 mmol/L (96-108); Creatinine Clr Calc Pharmacy 55.2; Estimated Glomerular Filt Rate 50; Glucose Random 157 mg/dL (60-115); Lipase 24 U/L (8-78); Potassium 4.1 mmol/L (3.3-5.1); Sodium 143 mmol/L (135-145); Total Protein 7.2 g/dL (6.5-8.0)
[2024-06-14 06:39] LABS: Troponin-I High Sensitivity 3.5 ng/L (<3.5-35.0)
[2024-06-14] MEDS: iohexoL 350 MG/ML 100 ML INFUS..BTL 85 ML IV (06:54)
[2024-06-14 07:57] LABS: Appearance Urine Clear; Color Urine Yellow; Glucose Urine UA 100 mg/dL (Negative); Leukocyte Esterase Urine Negative (Negative); Nitrite Urine Negative (Negative); PH 5.5 (5.0-9.0); Specific Gravity - Urine >= 1.030 (1.005-1.025); UMIC TRIGGER UACC YES; Urine Blood Large (3+) (Negative); Urine Ketones Negative (Negative); Urine Protein 30 (1+) mg/dL (Neg-Trace)
[2024-06-14 08:02] LABS: Bacteria Urine None Seen (None Seen); RBC Urine >20 /HPF (0-2); WBC Urine 0-5 /HPF (0-5)
[2024-06-14] MEDS: Ketorolac Tromethamine 15 MG/ML VIAL IVPUSH (08:32)
[2024-06-14 08:46] VITALS: BP 121/54; PULSE 75; RESP 12; TEMP 36.5; O2SAT 96
[2024-06-14 09:46] VITALS: BP 121/54; PULSE 75; RESP 12; TEMP 36.5; O2SAT 96
== END 2024-06-14 09:47 | disposition home or self-care (01) ==
PROVIDERS: Emergency Medicine; Emergency Provider Student in an Organized Health Care Education/Training Program
DX: N13.2 Hydronephrosis with renal and ureteral calculous obstruction (principal); R10.32 Left lower quadrant pain; R11.2 Nausea with vomiting, unspecified; E11.9 Type 2 diabetes mellitus without complications; I10 Essential (primary) hypertension; E78.5 Hyperlipidemia, unspecified; Z79.02 Long term (current) use of antithrombotics/antiplatelets; Z79.82 Long term (current) use of aspirin; Z79.899 Other long term (current) drug therapy
CPT/HCPCS: 36415; 74177; 80053; 81001; 83690; 84484; 85025; 93005; 96374; 96375; 99284; 99285; J1885; J2270; J2405; Q9967

== ENCOUNTER → 2024-06-14 06:07 | Outpatient (BNV) | payer MEDICARE, SELFPAY | PROVIDERS: Emergency Provider Student in an Organized Health Care Education/Training Program; Visit Provider Radiology Diagnostic Radiology | DX: N13.2 Hydronephrosis with renal and ureteral calculous obstruction (principal); N28.1 Cyst of kidney, acquired; K57.90 Diverticulosis of intestine, part unspecified, without perforation or abscess without bleeding | CPT/HCPCS: 74177 ==

== ENCOUNTER → 2024-06-14 06:12 | Outpatient (BNV) | payer MEDICARE, SELFPAY | PROVIDERS: Emergency Provider Student in an Organized Health Care Education/Training Program; Visit Provider Internal Medicine Cardiovascular Disease | DX: I45.19 Other right bundle-branch block (principal); R94.31 Abnormal electrocardiogram [ECG] [EKG] | CPT/HCPCS: 93010 ==

== ENCOUNTER 2024-06-14 10:06 | Outpatient (REF) | payer MEDICARE, SELFPAY ==
--- OUTSIDE RECORDS SUMMARY | 2024-06-15 10:10 | XMS_ITS | Data Portability ---
Author Organization [facility] [facility] [place] Address [address] [place] [address] Assessment Encounter Date Assessment Date Assessment LastModified [...] more view 2022 023 [email or web address] [facility], [address], [place] [address], [place], [address], 14:08:30 Medication Orders Kenalog 40 mg/mL suspension for injection 2022 023 [email or web address] [id number], [address] [place], [address], 13:41:52 lidocaine (PF) 10 mg/mL (1 %) injection solution 2022 023 [email or web address] [id number], [address] [place], [address], 13:41:52 Patient TargetsNo targets recorded. Patient Instructions [...] Details Recorded Time Arthritis of right knee [id number] 02 Active 2022 MARY ANN BARRERA PA-C [address], [place], [address], [place] [facility] [place], P 3 13:37:11 Effusion of joint of right knee [id number] 4 Active 2022 MARY ANN BARRERA PA-C [address], [place], [address], [place] [facility] [place], P 3 13:38:24 Pain of right calf 12547162238057 03 Active 2022 MARY ANN BARRERA PA-C [address], [place], [address], [facility] [place], P 3 13:41:49 Problem Notes None recorded. Procedures Surgical History Date Name Laterality Status Provider Name and Address Organization Details Recorded Time 10/05/2022 Knee Joint/Burs a Asp & Inj completed MARY ANN BARRERA PA-C [address], [place], [address], [facility] [place], P 10/05/2022 13:32:53 Imaging Results None recorded. Procedure Notes None recorded. Medical Equipment None Reported. Allergies Allergen ID Allergen Name Allergen Category Reaction Reaction Severity Criticality Documentation Date Start Date Code Code System Note Provider Name and Address Organization Details Recorded Time 1500 simvastat in medicatio n Not available Not available Not available 10/05/2022 36646 RxNorm Genoveva reyes, [facility] [place], P 12:48:40 Medications Name Sig Start Date [...] Diagnosis ICD10 Code 3550 MD LACY Chahal [address] [place] [phone] 10/05/2022 12:47:29 10/05/2022 13:30:17 Pain of right knee joint 5336348301 25174 M25.561 Arthritis of right knee 7162739601 347017 M13.861 Effusion o f joint of right knee 1019371517 63400 M25.461 Pain of right calf 65517 55092 142847 M79.661 Health Concerns Section Related Observation LastModified by Organization Detai ls LastModified Time None Recorded Concern Status LastModified by Organization Details LastModified Time None Recorded Advance Directives Directive None Recorded Payers Encounter Date Sequence Insurance Name Policy Number Policy Ferris Covered Member ID Ferris Member ID Guarantor Name 10/05/2022 1 [place] [employer] Graham Amayaor [id number] Graham Enriquez 10/05/2022 2 [place] [facility] [id number] Graham Oliviaelor [id number] Graham Enriquez Notes Date Note Type [...] check his sugars MARY ANN BARRERA PA-C [address] [place] [address], [phone], [place] [facility] [place], P 10/05/2022 13:42:42
== END 2024-06-14 10:07 | disposition home or self-care (01) ==
LOC: HO.HOSX 10:06
PROVIDERS: Visit Provider Orthopaedic Surgery
DX: Z13.89 Encounter for screening for other disorder (principal)

== ENCOUNTER 2024-06-18 22:44 | Emergency (ER) | payer MEDICARE, SELFPAY ==
[2024-06-18 22:50] VITALS: BP 157/66; PULSE 81; RESP 18; TEMP 37.1; O2SAT 94; BMI 36.3
--- OUTSIDE RECORDS SUMMARY | 2024-06-18 23:38 | XMS_ITS | Data Portability ---
Author Organization [place] [facility] AONE Jones Address [address] [facility] [address] [place] [address] Assessment Encounter Date Assessment Date Assessment LastModified [...] more view 2022 023 [email or web address] [facility], [address], [place] [address], [place], [address], 14:08:30 Medication Orders Kenalog 40 mg/mL suspension for injection 2022 023 [email or web address] [id number], [address] [place], [address], 13:41:52 lidocaine (PF) 10 mg/mL (1 %) injection solution 2022 023 [email or web address] [id number], [address] [place], [address], 13:41:52 Patient TargetsNo targets recorded. Patient Instructions [...] Details Recorded Time Arthritis of right knee [id number] 02 Active 2022 MARY ANN BARRERA PA-C [address], [place], [address], [place] [facility], [facility] 3 13:37:11 Effusion of joint of right knee [id number] 4 Active 2022 MARY ANN BARRERA PA-C [address], [place], [address], [place] [facility], [facility] 3 13:38:24 Pain of right calf 11573671810970 03 Active 2022 MARY ANN BARRERA PA-C [address] [facility],[address], [place], [address], [facility], [facility] 3 13:41:49 Problem Notes None recorded. Procedures Surgical History Date Name Laterality Status Provider Name and Address Organization Details Recorded Time 10/05/2022 Knee Joint/Burs a Asp & Inj completed MARY ANN BARRERA PA-C [address] [facility],[address], [place], [address], [facility] 10/05/2022 13:32:53 Imaging Results None recorded. Procedure Notes None recorded. Medical Equipment None Reported. Allergies Allergen ID Allergen Name Allergen Category Reaction Reaction Severity Criticality Documentation Date Start Date Code Code System Note Provider Name and Address Organization Details Recorded Time 1500 simvastat in medicatio n Not available Not available Not available 10/05/2022 16503 RxNorm Genoveva reyes, [facility], P 12:48:40 Medications Name Sig Start Date [...] Diagnosis ICD10 Code 3550 MD LACY Chahal [address] [place] [id number] 10/05/2022 12:47:29 10/05/2022 13:30:17 Pain of right knee joint [id number] 47715 M25.561 Arthritis of right knee [id number] 790724 M13.861 Effusion o f joint of right knee 5220880393 96113 M25.461 Pain of right calf 96331 47543 004252 M79.661 Health Concerns Section Related Observation LastModified by Organization Detai ls LastModified Time None Recorded Concern Status LastModified by Organization Details LastModified Time None Recorded Advance Directives Directive None Recorded Payers Encounter Date Sequence Insurance Name Policy Number Policy Ferris Covered Member ID Ferris Member ID Guarantor Name 10/05/2022 1 [place] [employer] Graham Amayaor [id number] Graham Enriquez 10/05/2022 2 [place] [facility] [id number] Graham Oliviaelor [id number] Graham Enriquez Notes Date Note Type [...] check his sugars MARY ANN BARRERA PA-C [address] [place] [address], [phone], [place] [facility] 10/05/2022 13:42:42
--- NOTE | 2024-06-18 23:52 | ED_ITS ---
HPI - Male Genitourinary General Chief complaint: Urogenital-Male Stated complaint: Kidney Stones Time Seen by Provider: 06/18/24 23:31 Source: patient Mode of arrival: ambulatory History of Present Illness ED Provider: HPI Narrative: Patient's history of left ureteric stone wishes 2 mm in size is mild hydro was seen here on 06/14 comes back as pain still going on patient is supposed to see his urologist on 06/20 does not want to stay in the hospital as he wants to go to his own urologist at [facility] no nausea no vomiting taking morphine tablets with partial response Related Data Home Medications ?Medication ?Instructions ?Recorded ?Confirmed amlodipine 5 mg tablet 5 mg PO BEDTIME 12/29/22 01/17/24 aspirin 81 mg capsule 81 mg PO BEDTIME 12/29/22 01/17/24 finasteride 5 mg tablet 5 mg PO BEDTIME 12/29/22 01/17/24 losartan 25 mg tablet 25 mg PO BEDTIME 12/29/22 01/17/24 metformin 500 mg tablet 500 mg PO BEDTIME 12/29/22 01/17/24 tamsulosin 0.4 mg capsule 0.8 mg PO BEDTIME 12/29/22 01/17/24 rosuvastatin 5 mg tablet 5 mg PO BEDTIME 05/30/23 01/17/24 Previous Rx's ?Medication ?Instructions ?Recorded acetaminophen 325 mg tablet 650 mg (2 x 325 mg) PO Q6H PRN 06/07/23 Pain, Mild (Pain Scale 1-3) 30 days #240 tabs aspirin 325 mg tablet 325 mg PO BID@0600,1800 42 days 06/07/23 #240 tabs docusate sodium 100 mg capsule 100 mg PO BID 30 days #60 caps 06/07/23 gabapentin 100 mg capsule 100 mg PO BEDTIME 7 days #7 caps 06/07/23 methocarbamol 750 mg tablet 750 mg PO TID 14 days #42 tabs 06/07/23 hydromorphone 2 mg tablet 2 mg PO Q4H PRN Pain, Severe (Pain 06/08/23 Scale 7-10) 7 days #42 tabs oxycodone 5 mg tablet 5 mg PO Q6H PRN pain 7 days #28 06/23/23 tabs meloxicam 15 mg tablet 15 mg PO DAILY PRN pain #30 tabs 03/14/24 ketorolac 10 mg tablet 10 mg PO Q8H PRN pain #10 tabs 06/14/24 metoclopramide HCl 10 mg tablet 10 mg PO Q8H PRN nausea and 06/14/24 vomiting #10 tabs morphine 15 mg immediate release 15 mg PO Q8H PRN severe pain 06/14/24 tablet (scale score 7-10) #10 tabs prednisone 20 mg tablet 20 mg PO DAILY #7 tabs 06/14/24 hydromorphone 2 mg tablet 2 mg PO Q6H PRN pain #10 tabs 06/19/24 (Dilaudid) ondansetron 4 mg disintegrating 4 mg PO Q6-8H PRN nausea and 06/19/24 tablet vomiting #10 tabs Allergies Allergy/AdvReac Type Severity Reaction Status Date / Time No Known Allergies Allergy Verified 06/18/24 22:54 [No Known Allergies*] Review of Systems Review of Systems: Yes all other systems are reviewed and are negative PMFSH Past Medical History Medical History History of melanoma Diabetes BPH (benign prostatic hyperplasia) Right bundle branch block (RBBB) Hx of type 2 diabetes mellitus History of high cholesterol History of high blood pressure Surgical History Hx of colonoscopy History of melanoma excision Hx of cardiac catheterization History of total left knee replacement (TKR) Social History Social History Household Members: Significant Other Housing: House Are you a primary child care education coordinator to a significant other at home: No Do you presently have visiting nurse or other home services: No Alcohol intake: never Patient Tobacco Use Status: Never used Tobacco Advance Directives Date on File: 06/09/23 Do you have a plan to hurt others: No Plan service: No Current occupational status: retired Current occupation: right hand dominant Physical Exam Vital Signs: Vital Signs: Last Vital Signs Temp 98.7 F 06/18/24 22:50 Pulse 81 06/18/24 22:50 Resp 18 06/18/24 22:50 BP 157/66 H 06/18/24 22:50 Pulse Ox 94 06/18/24 22:50 O2 Del Method Room Air 06/18/24 22:50 BMI result Body Mass Index 36.3 Appearance: Alert. Oriented X3. Mild distress Eyes: PERRLA, No Nystagmus ENT: Pharynx normal. Oral Mucosa moist Neck: Normal inspection. Neck supple. CVS: Normal heart rate and rhythm. Pulses normal. Respiratory: No respiratory distress. Equal air entry bilateral, no wheezing/rales/rhonchi Abdomen: Soft and nontender. Bowel sounds are present, no mass palpable, l CVA tenderness Skin: Skin warm and dry. Normal skin color. Normal skin turgor. Extremities: No lower extremity edema. No calf tenderness Neuro: Oriented X 3. No motor deficit. Medications Administered Discontinued Medications Generic Name Dose Route Start Last Admin Trade Name Freq PRN Reason Stop Dose Admin Hydromorphone HCl 4 mg 06/19/24 00:09 06/19/24 00:24 Hydromorphone Hcl 2 Mg Tablet PO 06/19/24 00:10 4 mg ONCE ONE Administration Ondansetron HCl 4 mg 06/19/24 00:09 06/19/24 00:24 Ondansetron Odt 4 Mg Tab.Rapdis TRANSLINGU 06/19/24 00:10 4 mg ONCE ONE Administration Medical Decision Making Medical Decision Making [facility] Narrative: Patient with 2 mm proximal ureteric stone on the left side plan to have lithotripsy by his urologist on 06/20/2024 will give Dilaudid for pain control patient is feeling much better after taking p.o. Dilaudid will discharge patient home Discharge Plan Discharge Clinical Impression: Calculus of proximal left ureter Patient Disposition: Home, Self-Care Instructions: Ureteral Stones (ED) Additional Instructions: Drink plenty of fluids Continue Flomax at bedtime Dilaudid for severe pain as prescribed Prescriptions: New hydromorphone [Dilaudid] 2 mg tablet 2 mg PO Q6H PRN (Reason: pain) Qty: 10 0RF Rx Instructions: Partial Fill upon patient request. ondansetron 4 mg tablet,disintegrating 4 mg PO Q6-8H PRN (Reason: nausea and vomiting) Qty: 10 0RF No Action hydromorphone 2 mg tablet 2 mg PO Q4H PRN (Reason: Pain, Severe (Pain Scale 7-10)) 7 Days Qty: 42 0RF Rx Instructions: Partial Fill upon patient request. oxycodone 5 mg tablet 5 mg PO Q6H PRN (Reason: pain) 7 Days Qty: 28 0RF Rx Instructions: Partial Fill upon patient request. meloxicam 15 mg tablet 15 mg PO DAILY PRN (Reason: pain) Qty: 30 3RF rosuvastatin 5 mg tablet 5 mg PO BEDTIME methocarbamol 750 mg Tablet 750 mg PO TID 14 Days Qty: 42 0RF acetaminophen 325 mg Tablet 650 mg PO Q6H PRN (Reason: Pain, Mild (Pain Scale 1-3)) 30 Days Qty: 240 0RF aspirin 325 mg Tablet 325 mg PO BID@0600,1800 42 Days Qty: 240 0RF docusate sodium 100 mg Capsule 100 mg PO BID 30 Days Qty: 60 0RF gabapentin 100 mg Capsule 100 mg PO BEDTIME 7 Days Qty: 7 0RF prednisone 20 mg tablet 20 mg PO DAILY Qty: 7 0RF metoclopramide HCl 10 mg tablet 10 mg PO Q8H PRN (Reason: nausea and vomiting) Qty: 10 0RF ketorolac 10 mg tablet 10 mg PO Q8H PRN (Reason: pain) Qty: 10 0RF Rx Instructions: maximum total duration of 5 days from all oral, intranasal, or parenteral formulations morphine 15 mg tablet 15 mg PO Q8H PRN (Reason: severe pain (scale score 7-10)) Qty: 10 0RF Rx Instructions: Partial Fill upon patient request. metformin 500 mg tablet 500 mg PO BEDTIME finasteride 5 mg tablet 5 mg PO BEDTIME amlodipine 5 mg tablet 5 mg PO BEDTIME tamsulosin 0.4 mg capsule 0.8 mg PO BEDTIME losartan 25 mg tablet 25 mg PO BEDTIME aspirin 81 mg capsule 81 mg PO BEDTIME Print Language: Omani
[2024-06-19] MEDS: Ondansetron ODT 4 MG TAB.RAPDIS TRANSLINGU (00:24)
[2024-06-19] MEDS: HYDROmorphone HCl 2 MG TABLET 4 MG PO (00:24)
[2024-06-19] MEDS: Milk of Magnesia 30 ML ORAL.SUSP PO (00:33)
[2024-06-19 00:41] VITALS: BP 157/66; PULSE 81; RESP 18; TEMP 37.1; O2SAT 94
== END 2024-06-19 00:50 | disposition home or self-care (01) ==
LOC: HO.ED 06-19 00:49
PROVIDERS: Emergency Provider Internal Medicine; PCP Registered Nurse
DX: N20.1 Calculus of ureter (principal); R10.2 Pelvic and perineal pain; Z79.899 Other long term (current) drug therapy
CPT/HCPCS: 99283; 99284